=== PATIENT | male | born 1975 | race Caucasian/White ===

== ENCOUNTER 2019-12-11 17:28 | Emergency (ER) | payer OTHER, MEDICAID, SELFPAY ==
[2019-12-11 17:35] VITALS: BP 128/78; PULSE 87; RESP 14; TEMP 36.4; O2SAT 100
[2019-12-11 18:04] LABS: Add Manual Diff / Slide Review NO; Basophils Absolute Auto 100 /uL (0-100); Basophils Percent Auto 0.7 % (0-2); Eosinophils Absolute Auto 100 /uL (0-450); Eosinophils Percent Auto 1.1 % (2-4); Hematocrit 49.5 % (41-53); Hemoglobin 17.2 g/dL (13.5-17.5); Lymphocytes Absolute Auto 2000 /uL (1100-4500); Lymphocytes Percent Auto 19.2 % (25-40); Mean Corpuscular HGB Conc 34.7 % (30-36); Mean Corpuscular Hemoglobin 31.7 PG (26-34); Mean Corpuscular Volume 91.4 fL (80-100); Monocytes Absolute Auto 1000 /uL (0-900); Monocytes Percent Auto 9.8 % (3-14); Neutrophils Absolute Auto 7000 /uL (1500-7000); Neutrophils Percent Auto 69.2 % (50-75); Platelet Count 187 X10^3/uL (150-400); Red Blood Cell Count 5.42 X10^6/uL (4.5-5.9); Red Cell Distribution Width 13.1 % (11.6-14.8); White Blood Cell Count 10.1 X10^3/uL (4.5-11.0)
[2019-12-11] MEDS: SODIUM CHLORIDE 0.9% 1,000 ML 999 ML IV (18:04)
[2019-12-11 18:16] LABS: Alanine Aminotransferase 44 IU/L (<50); Albumin 4.5 g/dL (3.5-5.0); Albumin Globulin Ratio 1.3 (1.0-2.8); Alkaline Phosphatase 88 U/L (38-126); Amylase 72 U/L (30-110); Aspartate Aminotransferase 36 IU/L (17-59); BUN Creatinine Ratio 14.2 (6-22); Bilirubin Total 2.1 mg/dL (0.2-1.3); Blood Urea Nitrogen 15 mg/dL (9-20); Calcium 9.4 mg/dL (8.4-10.2); Carbon Dioxide 26 mmol/L (22-32); Chloride 103 mmol/L (98-107); Estimated Glomerular Filt Rate > 60.0 mL/min (>60); Globulin 3.4 g/dL (1.7-4.1); Glucose 85 mg/dL (70-100); HEMOLYSIS 25 (0-50); Lipase 57 U/L (23-300); Sodium 138 mmol/L (137-145); Total Protein 7.9 g/dL (6.3-8.2)
--- NOTE | 2019-12-11 18:49 | DI.CT.S_ITS ---
PROCEDURE: CT ABDOMEN PELVIS W CON INDICATIONS: llq pain TECHNIQUE: After the administration of intravenous contrast, 5 mm thick sections acquired from the diaphragm to the symphysis. 5 mm coronal and sagittal reformats were acquired. For radiation dose reduction, the following was used: automated exposure control, adjustment of mA and/or kV according to patient size. COMPARISON: None. FINDINGS: Image quality: Excellent. ABDOMEN: Lung bases: Lung bases are clear. Heart size is normal. Solid organs: Hepatic steatosis. Liver is normal in size and enhancement. Gallbladder is normal. Biliary system is non dilated. Pancreas enhances normally. Spleen is normal in size and enhancement. No adrenal nodules. Kidneys demonstrate normal size and enhancement, without hydronephrosis. Peritoneum and bowel: There are chronic diverticula. There is focal thickening and inflammatory stranding in the descending colon adjacent to a diverticulum, consistent with acute diverticulitis. There is a surgical anastomosis in the sigmoid colon. There is moderate amount of colonic stool. Bowel loops demonstrate normal caliber. No free fluid or air. Nodes and vessels: No retroperitoneal or mesenteric adenopathy by size criteria. Aorta and inferior vena cava are normal in size. Miscellaneous: No ventral hernias. PELVIS: Genitourinary: Bladder wall thickness is normal. Enlarged prostate. Miscellaneous: No inguinal hernias or adenopathy. Bones: No suspicious bony lesions. No vertebral body compression fractures. IMPRESSION: 1. Acute diverticulitis of the descending colon. 2. Hepatic steatosis. 3. Enlarged prostate. Dictated by: Roxane Michelle M.D. on 12/11/2019 at 19:27 Approved by: Roxane Michelle M.D. on 12/11/2019 at 19:32
--- NOTE | 2019-12-11 19:38 | ED_ITS ---
HPI - Abdominal Pain <SUZY Marcos- - Last Filed: 12/11/19 19:56> General Chief Complaint: Abdominal Pain Stated Complaint: thinks diverticulitis Time Seen by Provider: 12/11/19 17:38 Source: patient Mode of arrival: Ambulatory Limitations: no limitations History of Present Illness HPI narrative: The patient is a 44-year-old male nonsmoker with history of diverticulitis who presents with a chief complaint of left lower quadrant pain. He states he most recently had diverticulitis in 2016 and this feels similar. Denies any fevers nausea vomiting or diarrhea. He states he had a slight episode of nausea yesterday but it went away. He has not taken anything to feel better. He states that he had multiple episodes of diverticulitis someone year, so he a part of his colon removed. He states that when the pain gets really bad it radiates to his back. He denies any urinary symptoms. Denies any flank pain chest pain shortness of breath. Related Data Previous Rx's Medication Instructions Recorded ciprofloxacin HCl 500 mg PO BID 10 Days #20 tab 12/11/19 hydrocodone-acetaminophen 1 tab PO Q4-6H PRN #10 tab 12/11/19 metronidazole 500 mg PO Q8H 10 Days #30 tab 12/11/19 ondansetron 4 mg PO Q6H PRN #20 tab 12/11/19 Allergies Allergy/AdvReac Type Severity Reaction Status Date / Time No Known Drug Allergies Allergy Verified 12/11/19 17:36 Review of Systems <NAEL Marcos - Last Filed: 12/11/19 19:56> Review of Systems Narrative: GENERAL: Denies chills, fatigue, malaise, fever, sweats. HEENT: Denies sinus pain, ear pain, sore throat, difficulty swallowing, dizziness. RESPIRATORY: Denies dyspnea, cough, wheezing, hemoptysis, sputum. CARDIOVASCULAR: Denies chest pain, palpitations, orthopnea, edema, GASTROINTESTINAL: See HPI : Denies dysuria, frequency, incontinence, hematuria, urinary retention. MUSCULOSKELETAL: denies weakness, joint pain, or bony pain SKIN: Denies rash, skin lesions, or other NEUROLOGIC: Denies weakness, headache, numbness, change in speech, confusion, seizures, incoordination. PSYCHIATRIC: No concerning psychosocial issues. 12 point review of systems is negative except for those stated above Patient History <PUJA Marcos - Last Filed: 12/11/19 19:56> Surgical History (Updated 12/11/19 @ 19:39 by PUJA Marcos) History of abdominal surgery (Acute) Social History Smoking Status: Never smoker Smoking Status: Never smoker Exam <PUJA Marcos - Last Filed: 12/11/19 19:56> Narrative Exam Narrative: GENERAL: This is a well-nourished, well-developed patient, no acute distress HEAD: Atraumatic. Normocephalic. No temporal or scalp tenderness. EYES: Pupils equal round and reactive. Extraocular motions intact. No scleral icterus. No injection or drainage. ENT: Nose without bleeding, purulent drainage or septal hematoma. Throat without erythema, tonsillar hypertrophy or exudate. Uvula midline. Airway patent. NECK: Trachea midline. No JVD or lymphadenopathy. Supple, nontender, no meningeal signs. CARDIOVASCULAR: Regular rate and rhythm without murmurs, gallops, or rubs. RESPIRATORY: Clear to auscultation. Breath sounds equal bilaterally. No wheezes, rales, or rhonchi. GASTROINTESTINAL: Abdomen soft, nondistended. No hepato-splenomegaly, or palpable masses. No guarding. Diffuse tenderness to left lower quadrant palpation EXTREMITIES: No clubbing, cyanosis, or edema. No joint tenderness, effusion, or edema noted. BACK: Nontender without deformity or crepitance. No flank tenderness. NEURO: AOx3. SKIN: No rash or erythema. Initial Vital Signs Initial Vital Signs: Vital Signs Temperature 97.6 F 12/11/19 17:35 Pulse Rate 87 12/11/19 17:35 Respiratory Rate 14 12/11/19 17:35 Blood Pressure 128/78 12/11/19 17:35 Pulse Oximetry 100 12/11/19 17:35 <Leticia Broderick DO - Last Filed: 12/11/19 21:26> Initial Vital Signs Initial Vital Signs: Vital Signs Temperature 97.6 F 12/11/19 17:35 Pulse Rate 87 12/11/19 17:35 Respiratory Rate 14 12/11/19 17:35 Blood Pressure 128/78 12/11/19 17:35 Pulse Oximetry 100 12/11/19 17:35 Course <PUJA Marcos - Last Filed: 12/11/19 19:56> Orders Ordered: ED Orders 12/11/19 17:56 Amylase Stat Complete Blood Count AUTO DIFF Stat Comprehensive Metabolic Panel Stat Lipase Stat 12/11/19 18:49 CT abdomen pelvis w con Stat Discontinued Medications Sodium Chloride (Normal Saline 0.9%) 1,000 mls @ 150 mls/hr IV CONT MARISA Last Infusion: 12/11/19 19:05 Dose: 0 mls/hr Documented by: Admin: 12/11/19 18:04 Dose: 999 mls/hr Documented by: LIYAH Vital Signs Vital signs: Vital Signs - 8 hr 12/11/19 17:35 12/11/19 20:01 Temperature 97.6 F Pulse Rate 87 72 Respiratory Rate 14 18 Blood Pressure 128/78 Blood Pressure [Left Arm] 117/70 Pulse Oximetry 100 99 <Leticia Broderick DO - Last Filed: 12/11/19 21:26> Orders Ordered: ED Orders 12/11/19 17:56 Amylase Stat Complete Blood Count AUTO DIFF Stat Comprehensive Metabolic Panel Stat Lipase Stat 12/11/19 18:49 CT abdomen pelvis w con Stat Discontinued Medications Sodium Chloride (Normal Saline 0.9%) 1,000 mls @ 150 mls/hr IV CONT MARISA Last Infusion: 12/11/19 19:05 Dose: 0 mls/hr Documented by: Admin: 12/11/19 18:04 Dose: 999 mls/hr Documented by: LIYAH Vital Signs Vital signs: Vital Signs - 8 hr 12/11/19 17:35 12/11/19 20:01 Temperature 97.6 F Pulse Rate 87 72 Respiratory Rate 14 18 Blood Pressure 128/78 Blood Pressure [Left Arm] 117/70 Pulse Oximetry 100 99 MDM - Abdominal Pain <PUJA Marcos - Last Filed: 12/11/19 19:56> Differential Diagnosis Differential diagnosis: Likely abdominal pain, acute appendicitis, constipation and diverticulitis Lab Data Result diagrams: 12/11/19 17:56 12/11/19 17:56 Labs: Lab Results 12/11/19 12/11/19 Range/Units 17:56 17:56 WBC 10.1 (4.5-11.0) X10^3/uL RBC 5.42 (4.5-5.9) X10^6/uL Hgb 17.2 (13.5-17.5) g/dL Hct 49.5 (41-53) % MCV 91.4 (80-100) fL MCH 31.7 (26-34) PG MCHC 34.7 (30-36) % RDW 13.1 (11.6-14.8) % Plt Count 187 (150-400) X10^3/uL Neut % (Auto) 69.2 (50-75) % Lymph % (Auto) 19.2 L (25-40) % [place] % (Auto) 9.8 (3-14) % Eos % (Auto) 1.1 L (2-4) % Baso % (Auto) 0.7 (0-2) % Neut # (Auto) 7000 (2937-3924) /uL Lymph # (Auto) 2000 (5202-9202) /uL [place] # (Auto) 1000 H (0-900) /uL Eos # (Auto) 100 (0-450) /uL Baso # (Auto) 100 (0-100) /uL Sodium 138 (137-145) mmol/L Potassium 4.0 (3.4-5.1) mmol/L Chloride 103 (98-107) mmol/L Carbon Dioxide 26 (22-32) mmol/L BUN 15 (9-20) mg/dL Creatinine 1.06 (0.66-1.25) mg/dL Estimated GFR > 60.0 (>60) mL/min BUN/Creatinine Ratio 14.2 (6-22) Glucose 85 (70-100) mg/dL Calcium 9.4 (8.4-10.2) mg/dL Total Bilirubin 2.1 H (0.2-1.3) mg/dL AST 36 (17-59) IU/L ALT 44 (<50) IU/L Alkaline Phosphatase 88 (38-126) U/L Total Protein 7.9 (6.3-8.2) g/dL Albumin 4.5 (3.5-5.0) g/dL Globulin 3.4 (1.7-4.1) g/dL Albumin/Globulin Ratio 1.3 (1.0-2.8) Amylase 72 (30-110) U/L Lipase 57 (23-300) U/L Imaging Data CT scan - abdomen/pelvis: Radiologist's Impression: [address] [place] [id number] Scan Report Signed Patient: Eleazar Maria PMR#: [id number] : 1975Acct:[id number] Age/Sex: 44 / MDate of Service: 12/11/19 Loc: ED Accession Number: [id number] Procedure: CT abdomen pelvis w con Ordering Provider: Leticia Montero- PROCEDURE: CT ABDOMEN PELVIS W CON INDICATIONS: llq pain TECHNIQUE: After the administration of intravenous contrast, 5 mm thick sections acquired from the diaphragm to the symphysis. 5 mm coronal and sagittal reformats were acquired. For radiation dose reduction, the following was used: automated exposure control, adjustment of mA and/or kV according to patient size. COMPARISON: None. FINDINGS: Image quality: Excellent. ABDOMEN: Lung bases: Lung bases are clear. Heart size is normal. Solid organs: Hepatic steatosis. Liver is normal in size and enhancement. Gallbladder is normal. Biliary system is non dilated. Pancreas enhances normally. Spleen is normal in size and enhancement. No adrenal nodules. Kidneys demonstrate normal size and enhancement, without hydronephrosis. Peritoneum and bowel: There are chronic diverticula. There is focal thickening and inflammatory stranding in the descending colon adjacent to a diverticulum, consistent with acute diverticulitis. There is a surgical anastomosis in the sigmoid colon. There is moderate amount of colonic stool. Bowel loops demonstrate normal caliber. No free fluid or air. Nodes and vessels: No retroperitoneal or mesenteric adenopathy by size criteria. Aorta and inferior vena cava are normal in size. Miscellaneous: No ventral hernias. PELVIS: Genitourinary: Bladder wall thickness is normal. Enlarged prostate. Miscellaneous: No inguinal hernias or adenopathy. Bones: No suspicious bony lesions. No vertebral body compression fractures. IMPRESSION: 1. Acute diverticulitis of the descending colon. 2. Hepatic steatosis. 3. Enlarged prostate. Dictated by: Roxane Michelle M.D. on 12/11/2019 at 19:27 Approved by: Roxane Michelle M.D. on 12/11/2019 at 19:32 MDM Narrative Medical decision making narrative: The patient is a 44-year-old male who presents with a chief complaint of left lower quadrant pain consistent with previous episodes of diverticulitis. He is nontoxic and well appearing, afebrile, in no acute distress. Labs reveal no leukocytosis, good renal function. CT shows diverticulitis, discussed incidental findings of hepatic steatosis and slight prostate enlargement. Patient elected to use Cipro and Flagyl for treatment. Did give prescriptions of [place] and Zofran as well. Discussed at length the importance of following up with primary care provider coming back to the emergency department for any acute concerns such as inability keep down fluids, abdominal pain high fever etcetera. Patient has no questions or concerns upon discharge and states understanding of return precautions as well as follow-up care. <Leticia Broderick, DO - Last Filed: 12/11/19 21:26> Lab Data Labs: Lab Results 12/11/19 12/11/19 Range/Units 17:56 17:56 WBC 10.1 (4.5-11.0) X10^3/uL RBC 5.42 (4.5-5.9) X10^6/uL Hgb 17.2 (13.5-17.5) g/dL Hct 49.5 (41-53) % MCV 91.4 (80-100) fL MCH 31.7 (26-34) PG MCHC 34.7 (30-36) % RDW 13.1 (11.6-14.8) % Plt Count 187 (150-400) X10^3/uL Neut % (Auto) 69.2 (50-75) % Lymph % (Auto) 19.2 L (25-40) % [place] % (Auto) 9.8 (3-14) % Eos % (Auto) 1.1 L (2-4) % Baso % (Auto) 0.7 (0-2) % Neut # (Auto) 7000 (6199-7729) /uL Lymph # (Auto) 2000 (5931-1539) /uL [place] # (Auto) 1000 H (0-900) /uL Eos # (Auto) 100 (0-450) /uL Baso # (Auto) 100 (0-100) /uL Sodium 138 (137-145) mmol/L Potassium 4.0 (3.4-5.1) mmol/L Chloride 103 (98-107) mmol/L Carbon Dioxide 26 (22-32) mmol/L BUN 15 (9-20) mg/dL Creatinine 1.06 (0.66-1.25) mg/dL Estimated GFR > 60.0 (>60) mL/min BUN/Creatinine Ratio 14.2 (6-22) Glucose 85 (70-100) mg/dL Calcium 9.4 (8.4-10.2) mg/dL Total Bilirubin 2.1 H (0.2-1.3) mg/dL AST 36 (17-59) IU/L ALT 44 (<50) IU/L Alkaline Phosphatase 88 (38-126) U/L Total Protein 7.9 (6.3-8.2) g/dL Albumin 4.5 (3.5-5.0) g/dL Globulin 3.4 (1.7-4.1) g/dL Albumin/Globulin Ratio 1.3 (1.0-2.8) Amylase 72 (30-110) U/L Lipase 57 (23-300) U/L Discharge Plan Departure Patient Disposition: Home Clinical Impression: Diverticulitis Discharge Date/Time: 12/11/19 20:02 Instructions: DI for Diverticulitis, DI for Abdominal Pain-Adult Activity Restrictions/Additional Instructions: Thank you for trusting us with your care today. Your CT scan showed acute diverticulitis. I have sent for prescriptions to [facility] in [place], 1 for pain, 1 for daniele sea and two antibiotics Please take the whole course of antibiotics Please follow-up with primary care provider next few days Please come back to the emergency department for any acute concerns such as inability keep down fluids, high fevers, etcetera Prescriptions: New hydrocodone-acetaminophen 5-325 mg tablet 1 tab PO Q4-6H PRN (Reason: pain) Qty: 10 RF: 0 ondansetron 4 mg tablet,disintegrating 4 mg PO Q6H PRN (Reason: nausea and vomiting) Qty: 20 RF: 0 ciprofloxacin HCl 500 mg tablet 500 mg PO BID 10 Days Qty: 20 RF: 0 metronidazole 500 mg tablet 500 mg PO Q8H 10 Days Qty: 30 RF: 0 Referrals: Saige Celeste MD [Primary Care Provider] -
[2019-12-11 20:01] VITALS: BP 117/70; PULSE 72; RESP 18; O2SAT 99
== END 2019-12-11 20:02 | disposition home or self-care (01) ==
PROVIDERS: Emergency Provider Nurse Practitioner Family; PCP Student in an Organized Health Care Education/Training Program
DX: K57.92 Diverticulitis of intestine, part unspecified, without perforation or abscess without bleeding (principal); R10.32 Left lower quadrant pain
CPT/HCPCS: 36415; 74177; 80053; 82150; 83690; 85025; 96360; 99284; Q9967

== ENCOUNTER 2022-05-28 09:37 | Emergency (ER) | payer OTHER, MEDICAID, SELFPAY ==
[2022-05-28 09:50] VITALS: BP 151/93; PULSE 81; RESP 18; TEMP 36.8; O2SAT 99; BMI 27.1
[2022-05-28 09:54] VITALS: PULSE 81; O2SAT 98
[2022-05-28 09:55] VITALS: BP 151/93; PULSE 80; O2SAT 99
[2022-05-28 10:00] VITALS: PULSE 84; O2SAT 98
--- NOTE | 2022-05-28 10:18 | DI.CT.S_ITS ---
PROCEDURE: CT ABDOMEN PELVIS W CON INDICATIONS: Left-sided abdominal pain, hx of diverticulitis w/resection TECHNIQUE: After the administration of oral and IV contrast, axial sections were acquired from the lung bases to the pubic symphysis. Coronal and sagittal reformats were performed. For radiation dose reduction, the following was used: automated exposure control, adjustment of mA and/or kV according to patient size. COMPARISON: [facility], CT, CT ABDOMEN PELVIS W CON, 12/11/2019, 18:53. FINDINGS: Image quality: Excellent. Lung bases: No pleural effusion. Calcification adjacent to the left 11th rib is unchanged. It is indeterminate if this represents bone or pleural calcification. Heart: No significant findings. ABDOMEN: Liver: No focal lesion. Hepatic steatosis. Gallbladder: Unremarkable. Biliary ducts: Unremarkable. Pancreas: No peripancreatic fluid collection. Spleen: Unremarkable. Adrenal Glands: No nodule. Kidneys and Ureters: No hydronephrosis. Stomach and Bowel: Moderate inflammatory change about the proximal aspect of the descending colon near the splenic flexure, (2/32). There is colonic diverticulosis. Rectosigmoid anastomosis is unchanged. No small bowel obstruction. The stomach is not distended. The appendix is normal. Peritoneum: No abnormal intraperitoneal fluid. No free air. Ventral Wall: No hernia. Abdominal Nodes: No retroperitoneal or mesenteric adenopathy by size criteria. Vessels: Aorta and inferior vena cava are normal in size. PELVIS: Pelvic Organs: Unremarkable. Bladder: Unremarkable. Pelvic Nodes: No enlarged lymph nodes. Miscellaneous: No inguinal hernias are seen. Bones: No suspicious lesion. IMPRESSION: 1. Descending colon diverticulitis near the splenic flexure. No abscess. 2. Hepatic steatosis. Comment: Findings were discussed with Wilder Alexander at time of dictation. Dictated by: Rajesh Collier M.D. on 05/28/2022 at 10:45 Approved by: Rajesh Collier M.D. on 05/28/2022 at 10:58
--- NOTE | 2022-05-28 10:22 | ED_ITS ---
HPI - General Adult General Chief complaint: Abdominal Pain Stated complaint: abd pain left side, hx of diverticulitis Time Seen by Provider: 05/28/22 10:17 Source: patient Mode of arrival: Ambulatory History of Present Illness HPI narrative: Patient is a 47-year-old male. Has had kidney stones and also diverticulitis in the past. His last bout of diverticulitis is many years ago. He had 3 episodes within 12 months and so stated that he had a 6 in piece of colon removed. Last evening started to have some discomfort in the left side of his abdomen. It was starting in his back radiating to the front. It felt more like diverticulitis then kidney stone. He states it is not worse to touch. Is not 100% like prior episodes of stones. No diarrhea but is having nausea and vomiting. No fevers. No recent antibiotics. Related Data Previous Rx's Medication Instructions Recorded hydrocodone 5 mg-acetaminophen 325 1 tab PO Q4-6H PRN pain #10 tabs 12/11/19 mg tablet ondansetron 4 mg disintegrating 4 mg PO Q6H PRN nausea and 12/11/19 tablet vomiting #20 tabs ciprofloxacin HCl 500 mg tablet 500 mg PO BID 10 days #20 tabs 05/28/22 (Cipro) metronidazole 500 mg tablet 500 mg PO TID 10 days #30 tabs 05/28/22 Allergies Allergy/AdvReac Type Severity Reaction Status Date / Time No Known Drug Allergies Allergy Verified 12/11/19 17:36 Review of Systems Review of Systems ROS Unobtainable: All systems reviewed & are unremarkable except as noted in HPI and below Patient History Medical History Diverticulitis Surgical History (Updated 05/28/22 @ 10:23 by Wilder Alexander DO) History of abdominal surgery History of colon resection Social History Smoking Status: Never smoker Smoking Status: Never smoker Substance Use Type: does not use Exam Initial Vital Signs Initial Vital Signs: Vital Signs Temperature 98.2 F 05/28/22 09:50 Pulse Rate 81 05/28/22 09:50 Respiratory Rate 18 05/28/22 09:50 Blood Pressure 151/93 H 05/28/22 09:50 Pulse Oximetry 99 09/16/22 09:50 Oxygen Delivery Method 05/28/22 09:50 Const General: cooperative and comfortable HENMT Head: normal to inspection and normocephalic Resp Effort & Inspection: normal respiratory effort Auscultation: clear to auscultation bilaterally Cardio Rate: regular rate Rhythm: regular rhythm GI Inspection: normal to inspection Palpation: soft and No tender Skin General: no rashes or lesions noted Neuro General: patient alert, patient awake and moves all extremities Extrem General: normal to inspection and capillary refill normal Psych Appearance: grossly normal and well kempt Course Orders Ordered: ED Orders 05/28/22 09:57 Complete Blood Count AUTO DIFF Stat Comprehensive Metabolic Panel Stat Lipase Stat 05/28/22 10:18 CT abdomen pelvis w con Stat Sodium Chloride (Normal Saline 0.9%) 1,000 mls @ 1,000 mls/hr IV BOLUS ONE Stop: 05/28/22 11:17 Last Admin: 05/28/22 10:37 Dose: 1,000 mls/hr Documented By: ALEXANDRE Vital Signs Vital signs: Vital Signs - 8 hr 05/28/22 09:50 05/28/22 09:54 05/28/22 09:55 Temperature 98.2 F Pulse Rate 81 81 80 Respiratory Rate 18 Blood Pressure 151/93 H Pulse Oximetry 99 98 99 Oxygen Delivery Method Room Air 05/28/22 09:55 05/28/22 10:00 Temperature Pulse Rate 84 Respiratory Rate Blood Pressure 151/93 H Pulse Oximetry 98 Oxygen Delivery Method Medical Decision Making Lab Data Lab results reviewed: Yes I reviewed the patient's lab results. Result diagrams: 05/28/22 09:57 05/28/22 09:57 Labs: Lab Results 05/28/22 05/28/22 Range/Units 09:57 09:57 WBC 10.9 (4.5-11.0) X10^3/uL RBC 5.37 (4.5-5.9) X10^6/uL Hgb 17.1 (13.5-17.5) g/dL Hct 49.1 (41-53) % MCV 91.4 (80-100) fL MCH 31.8 (26-34) PG MCHC 34.8 (30-36) % RDW 13.7 (11.6-14.8) % Plt Count 159 (150-400) X10^3/uL Neut % (Auto) 81.2 H (50-75) % Lymph % (Auto) 11.2 L (25-40) % [place] % (Auto) 6.8 (3-14) % Eos % (Auto) 0.5 L (2-4) % Baso % (Auto) 0.3 (0-2) % Neut # (Auto) 8900 H (6431-0289) /uL Lymph # (Auto) 1200 (9730-4267) /uL [place] # (Auto) 700 (0-900) /uL Eos # (Auto) 100 (0-450) /uL Baso # (Auto) 0 (0-100) /uL Sodium 138 (137-145) mmol/L Potassium 4.0 (3.4-5.1) mmol/L Chloride 100 (98-107) mmol/L Carbon Dioxide 27 (22-32) mmol/L BUN 13 (9-20) mg/dL Creatinine 1.01 (0.66-1.25) mg/dL Estimated GFR > 60 (>60) mL/min BUN/Creatinine Ratio 12.9 (6-22) Glucose 154 H (70-100) mg/dL Calcium 9.1 (8.4-10.2) mg/dL Total Bilirubin 2.2 H (0.2-1.3) mg/dL AST 42 (17-59) IU/L ALT 53 H (<50) IU/L Alkaline Phosphatase 97 (38-126) U/L Total Protein 7.6 (6.3-8.2) g/dL Albumin 4.4 (3.5-5.0) g/dL Globulin 3.2 (1.7-4.1) g/dL Albumin/Globulin Ratio 1.4 (1.0-2.8) Lipase 48 (23-300) U/L Imaging Data CT scan - abdomen/pelvis: Radiologist's Impression: [address] [address] [address] Scan Report Signed Patient: Eleazar Maria MR#: [id number] : 1975 Acct:[id number] Age/Sex: 47 / M Date of Service: 05/28/22 Loc: ED Accession Number: [id number] ?? Procedure: CT abdomen pelvis w con Ordering Provider: Lanker,Wilder D.O. PROCEDURE:? CT ABDOMEN PELVIS W CON ? INDICATIONS:? Left-sided abdominal pain, hx of diverticulitis w/resection ? TECHNIQUE:? After the administration of oral and IV contrast, axial sections were acquired from the lung bases to the pubic symphysis.? Coronal and sagittal reformats were performed.? For radiation dose reduction, the following was used:? automated exposure control, adjustment of mA and/or kV according to patient size. ? COMPARISON:? [facility], CT, CT ABDOMEN PELVIS W CON, 12/11/2019, 18:53. ? FINDINGS:? Image quality:? Excellent.? ? Lung bases:? No pleural effusion.? Calcification adjacent to the left 11th rib is unchanged.? It is indeterminate if this represents bone or pleural calcification.? ? Heart:? No significant findings. ? ? ABDOMEN: Liver:? No focal lesion.? Hepatic steatosis. Gallbladder:? Unremarkable.? ? Biliary ducts:? Unremarkable.? ? Pancreas:? No peripancreatic fluid collection.? ? Spleen:? Unremarkable.? ? Adrenal Glands:? No nodule. Kidneys and Ureters:? No hydronephrosis. ? Stomach and Bowel:? Moderate inflammatory change about the proximal aspect of the descending colon near the splenic flexure, ().? There is colonic diverticulosis.? Rectosigmoid anastomosis is unchanged.? No small bowel obstruction.? The stomach is not distended.? The appendix is normal. Peritoneum:? No abnormal intraperitoneal fluid.? No free air.? ? Ventral Wall: ? No hernia.? Abdominal Nodes:? No retroperitoneal or mesenteric adenopathy by size criteria.? Vessels:? Aorta and inferior vena cava are normal in size.? ? PELVIS: Pelvic Organs:? Unremarkable.? ? Bladder:? Unremarkable.? ? Pelvic Nodes: No enlarged lymph nodes.? Miscellaneous: No inguinal hernias are seen. ? ? ? Bones:? No suspicious lesion. ? ? IMPRESSION:? 1. Descending colon diverticulitis near the splenic flexure.? No abscess. ? 2. Hepatic steatosis. ? Comment: Findings were discussed with Wilder Alexander at time of dictation. ? Dictated by: Rajesh Collier M.D. on 05/28/2022 at 10:45 ? ? Approved by: Rajesh Collier M.D. on 05/28/2022 at 10:58? MDM Narrative Medical decision making narrative: Benign exam. Unremarkable labs. CT scan shows diverticulitis. Will discharge home with antibiotics. He was given return precautions. He expressed understanding and agreement. Discharge Plan Departure Patient Disposition: Home Clinical Impression: Diverticulitis Instructions: DI for Diverticulitis Activity Restrictions/Additional Instructions: A prescription for antibiotics was sent to [facility] in [place]. Take them as directed. Contact your primary doctor for follow-up. Return to the emergency department for any new or worsening symptoms. Prescriptions: New ciprofloxacin HCl [Cipro] 500 mg tablet 500 mg PO BID 10 Days Qty: 20 0RF metronidazole 500 mg tablet 500 mg PO TID 10 Days Qty: 30 0RF No Action hydrocodone-acetaminophen 5-325 mg tablet 1 tab PO Q4-6H PRN (Reason: pain) Qty: 10 0RF ondansetron 4 mg tablet,disintegrating 4 mg PO Q6H PRN (Reason: nausea and vomiting) Qty: 20 0RF Referrals: Saige Celeste MD [Primary Care Provider] -
[2022-05-28 10:36] LABS: Add Manual Diff / Slide Review NO; Basophils Absolute Auto 0 /uL (0-100); Basophils Percent Auto 0.3 % (0-2); Eosinophils Absolute Auto 100 /uL (0-450); Eosinophils Percent Auto 0.5 % (2-4); Hematocrit 49.1 % (41-53); Hemoglobin 17.1 g/dL (13.5-17.5); Lymphocytes Absolute Auto 1200 /uL (1100-4500); Lymphocytes Percent Auto 11.2 % (25-40); Mean Corpuscular HGB Conc 34.8 % (30-36); Mean Corpuscular Hemoglobin 31.8 PG (26-34); Mean Corpuscular Volume 91.4 fL (80-100); Monocytes Absolute Auto 700 /uL (0-900); Monocytes Percent Auto 6.8 % (3-14); Neutrophils Absolute Auto 8900 /uL (1500-7000); Neutrophils Percent Auto 81.2 % (50-75); Platelet Count 159 X10^3/uL (150-400); Red Blood Cell Count 5.37 X10^6/uL (4.5-5.9); Red Cell Distribution Width 13.7 % (11.6-14.8); White Blood Cell Count 10.9 X10^3/uL (4.5-11.0)
[2022-05-28] MEDS: SODIUM CHLORIDE 0.9% 1,000 ML 1000 ML IV (10:37)
[2022-05-28 10:39] VITALS: PULSE 87; O2SAT 97
[2022-05-28 10:45] LABS: Alanine Aminotransferase 53 IU/L (<50); Albumin 4.4 g/dL (3.5-5.0); Albumin Globulin Ratio 1.4 (1.0-2.8); Alkaline Phosphatase 97 U/L (38-126); Aspartate Aminotransferase 42 IU/L (17-59); BUN Creatinine Ratio 12.9 (6-22); Bilirubin Total 2.2 mg/dL (0.2-1.3); Blood Urea Nitrogen 13 mg/dL (9-20); Calcium 9.1 mg/dL (8.4-10.2); Carbon Dioxide 27 mmol/L (22-32); Chloride 100 mmol/L (98-107); Estimated Glomerular Filt Rate > 60 mL/min (>60); Globulin 3.2 g/dL (1.7-4.1); Glucose 154 mg/dL (70-100); HEMOLYSIS 17 (0-50); Lipase 48 U/L (23-300); Sodium 138 mmol/L (137-145); Total Protein 7.6 g/dL (6.3-8.2)
[2022-05-28 11:00] VITALS: BP 150/60; PULSE 84; O2SAT 97
== END 2022-05-28 11:22 | disposition home or self-care (01) ==
PROVIDERS: Emergency Provider Emergency Medicine; PCP Student in an Organized Health Care Education/Training Program
DX: K57.92 Diverticulitis of intestine, part unspecified, without perforation or abscess without bleeding (principal)
CPT/HCPCS: 36415; 74177; 80053; 83690; 85025; 96360; 99284; Q9967

== ENCOUNTER 2022-09-14 08:35 | Emergency (ER) | payer OTHER, MEDICAID, SELFPAY ==
[2022-09-14 09:22] VITALS: BP 137/83; PULSE 95; RESP 20; TEMP 37.1; O2SAT 100; BMI 27.1
[2022-09-14 10:10] LABS: Add Manual Diff / Slide Review NO; Basophils Absolute Auto 0 /uL (0-100); Basophils Percent Auto 0.3 % (0-2); Eosinophils Absolute Auto 0 /uL (0-450); Eosinophils Percent Auto 0.3 % (2-4); Hematocrit 49.5 % (41-53); Hemoglobin 17.1 g/dL (13.5-17.5); Lymphocytes Absolute Auto 500 /uL (1100-4500); Lymphocytes Percent Auto 4.5 % (25-40); Mean Corpuscular HGB Conc 34.6 % (30-36); Mean Corpuscular Hemoglobin 31.5 PG (26-34); Mean Corpuscular Volume 91.2 fL (80-100); Monocytes Absolute Auto 700 /uL (0-900); Monocytes Percent Auto 6.3 % (3-14); Neutrophils Absolute Auto 9400 /uL (1500-7000); Neutrophils Percent Auto 88.6 % (50-75); Platelet Count 145 X10^3/uL (150-400); Red Blood Cell Count 5.43 X10^6/uL (4.5-5.9); Red Cell Distribution Width 13.5 % (11.6-14.8); White Blood Cell Count 10.6 X10^3/uL (4.5-11.0)
[2022-09-14 10:21] LABS: Alanine Aminotransferase 44 IU/L (<50); Albumin 4.3 g/dL (3.5-5.0); Albumin Globulin Ratio 1.3 (1.0-2.8); Alkaline Phosphatase 101 U/L (38-126); Aspartate Aminotransferase 42 IU/L (17-59); BUN Creatinine Ratio 13.8 (6-22); Bilirubin Total 2.5 mg/dL (0.2-1.3); Blood Urea Nitrogen 13 mg/dL (9-20); Calcium 8.7 mg/dL (8.4-10.2); Carbon Dioxide 27 mmol/L (22-32); Chloride 102 mmol/L (98-107); Estimated Glomerular Filt Rate > 60 mL/min (>60); Globulin 3.2 g/dL (1.7-4.1); Glucose 95 mg/dL (70-100); HEMOLYSIS < 15 (0-50); Lipase 35 U/L (23-300); Potassium 4.1 mmol/L (3.4-5.1); Sodium 137 mmol/L (137-145); Total Protein 7.5 g/dL (6.3-8.2)
--- NOTE | 2022-09-14 11:40 | ED.GENADULT ---
HPI - General Adult General Chief complaint: Abdominal Pain Stated complaint: abd pain t-1 LT side Time Seen by Provider: 09/14/22 11:11 Source: patient Mode of arrival: Family Vehicle Related Data Previous Rx's Medication Instructions Recorded hydrocodone 5 mg-acetaminophen 325 1 tab PO Q4-6H PRN pain #10 tabs 12/10/ mg tablet ondansetron 4 mg disintegrating 4 mg PO Q6H PRN nausea and 12/11/19 tablet vomiting #20 tabs Allergies Allergy/AdvReac Type Severity Reaction Status Date / Time No Known Drug Allergies Allergy Verified 09/14/22 09:22 Patient History Medical History Diverticulitis Surgical History History of abdominal surgery History of colon resection Social History Smoking Status: Current every day smoker Smoking Status: Current every day smoker tobacco type: smokeless tobacco alcohol intake frequency: a few times a month Substance Use Type: marijuana Exam Initial Vital Signs Initial Vital Signs: Vital Signs Temperature 98.7 F 09/14/22 09:22 Pulse Rate 95 H 09/14/22 09:22 Respiratory Rate 20 09/14/22 09:22 Blood Pressure 137/83 09/14/22 09:22 Pulse Oximetry 100 09/14/22 09:22 Oxygen Delivery Method 09/14/22 09:22 Course Orders Ordered: Discontinued Medications Ondansetron HCl (Ondansetron 4 Mg Odt) 4 mg PO NOW PRN PRN Reason: Nausea And Vomiting Ondansetron HCl (Ondansetron 4 Mg/2 Ml Inj) 4 mg IV NOW PRN PRN Reason: Nausea And Vomiting Vital Signs Vital signs: Vital Signs - 8 hr 09/14/22 09:22 09/14/22 13:09 Temperature 98.7 F Pulse Rate 95 H 97 H Respiratory Rate 20 Blood Pressure 137/83 128/78 Pulse Oximetry 100 97 Oxygen Delivery Method Room Air Room Air Medical Decision Making Lab Data Result diagrams: 09/14/22 10:00 09/14/22 10:00 Labs: Lab Results 09/14/22 09/14/22 09/14/22 Range/Units 10:00 10:00 13:00 WBC 10.6 (4.5-11.0) X10^3/uL RBC 5.43 (4.5-5.9) X10^6/uL Hgb 17.1 (13.5-17.5) g/dL Hct 49.5 (41-53) % MCV 91.2 (80-100) fL MCH 31.5 (26-34) PG MCHC 34.6 (30-36) % RDW 13.5 (11.6-14.8) % Plt Count 145 L (150-400) X10^3/uL Neut % (Auto) 88.6 H (50-75) % Lymph % (Auto) 4.5 L (25-40) % [place] % (Auto) 6.3 (3-14) % Eos % (Auto) 0.3 L (2-4) % Baso % (Auto) 0.3 (0-2) % Neut # (Auto) 9400 H (2264-2110) /uL Lymph # (Auto) 500 L (6489-3823) /uL [place] # (Auto) 700 (0-900) /uL Eos # (Auto) 0 (0-450) /uL Baso # (Auto) 0 (0-100) /uL Sodium 137 (137-145) mmol/L Potassium 4.1 (3.4-5.1) mmol/L Chloride 102 (98-107) mmol/L Carbon Dioxide 27 (22-32) mmol/L BUN 13 (9-20) mg/dL Creatinine 0.94 (0.66-1.25) mg/dL Estimated GFR > 60 (>60) mL/min BUN/Creatinine Ratio 13.8 (6-22) Glucose 95 (70-100) mg/dL Calcium 8.7 (8.4-10.2) mg/dL Total Bilirubin 2.5 H (0.2-1.3) mg/dL AST 42 (17-59) IU/L ALT 44 (<50) IU/L Alkaline Phosphatase 101 (38-126) U/L Total Protein 7.5 (6.3-8.2) g/dL Albumin 4.3 (3.5-5.0) g/dL Globulin 3.2 (1.7-4.1) g/dL Albumin/Globulin Ratio 1.3 (1.0-2.8) Lipase 35 (23-300) U/L SARS-CoV-2 (PCR) Negative (Negative) Influenza A (RT-PCR) Flu a negative (NEGATIVE) Influenza B (RT-PCR) Flu b negative (NEGATIVE) RSV (PCR) Negative (Negative) Discharge Plan Departure Patient Disposition: Home Clinical Impression: Body aches Instructions: DI for Viral Syndrome Activity Restrictions/Additional Instructions: *You have been diagnosed with likely viral syndrome *What to do: *Please continue to take your regular medications as directed. *Please follow up with your primary care provider in 2-3 days, call for an appointment. Let them know you were seen in the Emergency Department and that we ask that you be seen in follow up. We will electronically transmit a record of today's note if your PCP is in our system *Return to Emergency Department if you should have any new, worsening or concerning symptoms, such as [fever greater than 101 F, shaking chills, worsening pain, persistent vomiting or other bothersome symptoms] Prescriptions: No Action hydrocodone-acetaminophen 5-325 mg tablet 1 tab PO Q4-6H PRN (Reason: pain) Qty: 10 0RF ondansetron 4 mg tablet,disintegrating 4 mg PO Q6H PRN (Reason: nausea and vomiting) Qty: 20 0RF Referrals: Saige Celeste MD [Primary Care Provider] - Stand Alone Forms: Patient Portal/API
--- NOTE | 2022-09-14 12:42 | ED.ABDPAIN ---
HPI - Abdominal Pain General Chief Complaint: Abdominal Pain Stated Complaint: abd pain t-1 LT side Time Seen by Provider: 09/14/22 11:11 Source: patient Mode of arrival: Family Vehicle History of Present Illness HPI narrative: 47-year-old male presenting with abdominal pain, chills, body aches, headache. Patient reports onset of symptoms yesterday evening when he developed shaking chills, patient did not have a measured temperature taken at that time. Chills resolved, patient developed diffuse right-sided abdominal pain and left low back pain, abdominal pain has resolved, patient has developed diffuse body aches and headache. Patient does have history of prior diverticulitis, patient reports that his symptoms feel distinct from that. No active abdominal pain in the emergency department. Patient reports mild nonproductive cough. Related Data Previous Rx's Medication Instructions Recorded hydrocodone 5 mg-acetaminophen 325 1 tab PO Q4-6H PRN pain #10 tabs 12/11/19 mg tablet ondansetron 4 mg disintegrating 4 mg PO Q6H PRN nausea and 12/11/19 tablet vomiting #20 tabs Allergies Allergy/AdvReac Type Severity Reaction Status Date / Time No Known Drug Allergies Allergy Verified 09/14/22 09:22 Review of Systems Review of Systems Narrative: Constitutional, Eyes, ENT, Pulmonary, Cardiovascular, Gastrointestinal, Renal, Endocrine, Genitourinary, Musculoskeletal, Neurologic, Skin, and Psychiatric systems were reviewed and negative unless indicated in the HPI above. Patient History Medical History Diverticulitis Surgical History History of abdominal surgery History of colon resection Social History Smoking Status: Current every day smoker Smoking Status: Current every day smoker tobacco type: smokeless tobacco alcohol intake frequency: a few times a month Substance Use Type: marijuana Exam Narrative Exam Narrative: Vitals reviewed. Nursing note reviewed Constitutional: interactive HENT: Moist mucous membranes EYES: No scleral icterus NECK: no masses CV: Well perfused peripherally, no cyanosis present PULM: Unlabored respirations, symmetric chest rise ABD: Non-distended, nontender with palpation MS: No gross deformities, no asymmetric edema noted SKIN: Warm and dry. PSYCH: Appropriate affect NEURO: Follows simple commands, moves extremities, interactive with exam Initial Vital Signs Initial Vital Signs: Vital Signs Temperature 98.7 F 09/14/22 09:22 Pulse Rate 95 H 09/14/22 09:22 Respiratory Rate 20 09/14/22 09:22 Blood Pressure 137/83 09/14/22 09:22 Pulse Oximetry 100 09/14/22 09:22 Oxygen Delivery Method 09/14/22 09:22 Course Orders Ordered: ED Orders 09/14/22 09:29 EKG-12 Lead Stat 09/14/22 10:00 Complete Blood Count AUTO DIFF Stat Comprehensive Metabolic Panel Stat Lipase Stat 09/14/22 12:47 Covid-19 + FLU A/B + RSV - PCR Stat Ondansetron HCl (Ondansetron 4 Mg Odt) 4 mg PO NOW PRN PRN Reason: Nausea And Vomiting Ondansetron HCl (Ondansetron 4 Mg/2 Ml Inj) 4 mg IV NOW PRN PRN Reason: Nausea And Vomiting Vital Signs Vital signs: Vital Signs - 8 hr 09/14/22 09:22 09/14/22 13:09 Temperature 98.7 F Pulse Rate 95 H 97 H Respiratory Rate 20 Blood Pressure 137/83 128/78 Pulse Oximetry 100 97 Oxygen Delivery Method Room Air Room Air MDM - Abdominal Pain Lab Data Result diagrams: 09/14/22 10:00 09/14/22 10:00 Labs: Lab Results 09/14/22 09/14/22 Range/Units 10:00 10:00 WBC 10.6 (4.5-11.0) X10^3/uL RBC 5.43 (4.5-5.9) X10^6/uL Hgb 17.1 (13.5-17.5) g/dL Hct 49.5 (41-53) % MCV 91.2 (80-100) fL MCH 31.5 (26-34) PG MCHC 34.6 (30-36) % RDW 13.5 (11.6-14.8) % Plt Count 145 L (150-400) X10^3/uL Neut % (Auto) 88.6 H (50-75) % Lymph % (Auto) 4.5 L (25-40) % [place] % (Auto) 6.3 (3-14) % Eos % (Auto) 0.3 L (2-4) % Baso % (Auto) 0.3 (0-2) % Neut # (Auto) 9400 H (8340-5076) /uL Lymph # (Auto) 500 L (0925-5710) /uL [place] # (Auto) 700 (0-900) /uL Eos # (Auto) 0 (0-450) /uL Baso # (Auto) 0 (0-100) /uL Sodium 137 (137-145) mmol/L Potassium 4.1 (3.4-5.1) mmol/L Chloride 102 (98-107) mmol/L Carbon Dioxide 27 (22-32) mmol/L BUN 13 (9-20) mg/dL Creatinine 0.94 (0.66-1.25) mg/dL Estimated GFR > 60 (>60) mL/min BUN/Creatinine Ratio 13.8 (6-22) Glucose 95 (70-100) mg/dL Calcium 8.7 (8.4-10.2) mg/dL Total Bilirubin 2.5 H (0.2-1.3) mg/dL AST 42 (17-59) IU/L ALT 44 (<50) IU/L Alkaline Phosphatase 101 (38-126) U/L Total Protein 7.5 (6.3-8.2) g/dL Albumin 4.3 (3.5-5.0) g/dL Globulin 3.2 (1.7-4.1) g/dL Albumin/Globulin Ratio 1.3 (1.0-2.8) Lipase 35 (23-300) U/L [facility] Narrative Medical decision making narrative: 47-year-old male presenting with abdominal pain, body aches, headache, cough, chills. Vital signs on presentation notable for no significant abnormalities. Physical exam notable for a well-appearing 47-year-old male who is in no acute distress, reassuring cardiopulmonary exam, benign abdomen. Initial concern for viral syndrome including COVID infection, influenza, focal bacterial infection including occult sepsis, recurrent diverticulitis, acute intra-abdominal pathology, medication effect, electrolyte derangement. Screening labs obtained and notable for reassuring CBC without leukocytosis or left shift, no significant anemia noted, CMP notable for minimally elevated T bili at 2.5, this is mildly up trending the patient's prior. Low suspicion for acute intra-abdominal pathology the patient's benign exam, no leukocytosis, and constellation of symptoms seem more consistent with viral syndrome. Patient has no clear evidence of sepsis. No significant electrolyte derangements. Discussed plan for outpatient follow-up including repeat laboratory analysis within 1 week to assess for change in T bili trend. Viral swab is obtained and pending. The patient elected to discharge prior to swab results. Return precautions discussed. Discharge Plan Departure Patient Disposition: Home Clinical Impression: Body aches Instructions: DI for Viral Syndrome Activity Restrictions/Additional Instructions: *You have been diagnosed with likely viral syndrome *What to do: *Please continue to take your regular medications as directed. *Please follow up with your primary care provider in 2-3 days, call for an appointment. Let them know you were seen in the Emergency Department and that we ask that you be seen in follow up. We will electronically transmit a record of today's note if your PCP is in our system *Return to Emergency Department if you should have any new, worsening or concerning symptoms, such as [fever greater than 101 F, shaking chills, worsening pain, persistent vomiting or other bothersome symptoms] Prescriptions: No Action hydrocodone-acetaminophen 5-325 mg tablet 1 tab PO Q4-6H PRN (Reason: pain) Qty: 10 0RF ondansetron 4 mg tablet,disintegrating 4 mg PO Q6H PRN (Reason: nausea and vomiting) Qty: 20 0RF Referrals: Saige Celeste MD [Primary Care Provider] - Stand Alone Forms: Patient Portal/API
[2022-09-14 13:09] VITALS: BP 128/78; PULSE 97; O2SAT 97
[2022-09-14 13:51] LABS: Influenza A - CEPHEID Flu A NEGATIVE (NEGATIVE); Influenza B - CEPHEID Flu B NEGATIVE (NEGATIVE); Respiratory Syncytial Virus Negative (Negative)
[2022-09-14 13:55] LABS: COVID-19 CEPHEID 4-PLEX PCR Negative (Negative)
== END 2022-09-14 13:15 | disposition home or self-care (01) ==
PROVIDERS: Emergency Medicine; Emergency Provider Emergency Medicine; PCP Student in an Organized Health Care Education/Training Program
DX: B34.9 Viral infection, unspecified (principal); M54.50 Low back pain, unspecified; Z20.822 Contact with and (suspected) exposure to COVID-19
CPT/HCPCS: 0241U; 36415; 80053; 83690; 85025; 99283

== ENCOUNTER 2023-01-13 06:36 | Emergency (ER) | payer OTHER, MEDICAID, SELFPAY ==
[2023-01-13 06:40] VITALS: BP 142/84; PULSE 80; RESP 17; TEMP 37.1; O2SAT 98; BMI 25.9
--- NOTE | 2023-01-13 07:31 | ED.BACK ---
HPI - Back Pain/Injury General Chief Complaint: Back Pain/Injury Stated Complaint: kidney stone Time Seen by Provider: 01/13/23 06:59 Source: patient Mode of arrival: Ambulatory Limitations: no limitations History of Present Illness HPI Narrative: Patient is a 47-year-old male who is here for evaluation what he states is a left-sided kidney stone. He states that his symptoms started this morning in the middle of the night. He did start to have some nausea last night with the pain was this morning. He is urinating without issue. He did vomit 1 time this morning. No diarrhea. He does have a history of diverticulitis but he states this feels different than that. He is had ?13 ?kidney stones in the past. He states this feels exactly like his prior stones. He is passed all of his stones on his own. No fevers. Has not tried anything for symptoms prior to arrival Related Data Previous Rx's Medication Instructions Recorded hydrocodone 5 mg-acetaminophen 325 1 tab PO Q4-6H PRN pain #10 tabs 12/11/19 mg tablet ondansetron 4 mg disintegrating 4 mg PO Q6H PRN nausea and 12/11/19 tablet vomiting #20 tabs hydrocodone 5 mg-acetaminophen 325 1 tab PO Q4-6H PRN pain #10 tabs 01/13/23 mg tablet ondansetron 4 mg disintegrating 4 mg PO Q6H PRN nausea and 01/13/23 tablet vomiting #14 tabs Allergies Allergy/AdvReac Type Severity Reaction Status Date / Time No Known Drug Allergies Allergy Verified 09/14/22 09:22 Review of Systems Constitutional Constitutional: Reports system reviewed and no additional complaints, except as documented Gastrointestinal Gastrointestinal: Reports system reviewed and no additional complaints, except as documented Genitourinary Genitourinary: Reports system reviewed and no additional complaints, except as documented Integumentary/Breasts Skin/Breast: Reports system reviewed and no additional complaints, except as documented Hematologic/Lymphatic On Anticoagulants: No Patient History Medical History Diverticulitis Surgical History History of abdominal surgery History of colon resection Social History Smoking Status: Former smoker Smoking Status: Former smoker tobacco type: smokeless tobacco alcohol intake frequency: a few times a month Substance Use Type: former substance user Exam Initial Vital Signs Initial Vital Signs: Vital Signs Temperature 98.8 F 01/13/23 06:40 Pulse Rate 80 01/13/23 06:40 Respiratory Rate 17 01/13/23 06:40 Blood Pressure 142/84 H 01/13/23 06:40 Pulse Oximetry 98 01/13/23 06:40 Oxygen Delivery Method Room Air 01/13/23 06:40 HENMT Head: normal to inspection and normocephalic Resp Effort & Inspection: normal respiratory effort Auscultation: clear to auscultation bilaterally Cardio Rate: regular rate Rhythm: regular rhythm GI Inspection: normal to inspection and non-distended Palpation: soft, No firm and No tender Back/Spine/Pelvis Back: No CVA tenderness Skin General: no rashes or lesions noted Neuro General: patient alert and patient awake Extrem General: normal to inspection and capillary refill normal Course Orders Ordered: ED Orders 01/13/23 06:58 Urine Microscopic Stat 01/13/23 07:15 Basic Metabolic Panel Stat Complete Blood Count AUTO DIFF Stat Discontinued Medications Ketorolac Tromethamine (Ketorolac 30 Mg/Ml Vial) 30 mg IV NOW ONE Stop: 01/13/23 07:32 Last Admin: 01/13/23 07:57 Dose: 30 mg Documented By: DAVID Ondansetron HCl (Ondansetron 4 Mg/2 Ml Inj) 4 mg IV NOW ONE Stop: 01/13/23 07:32 Last Admin: 01/13/23 07:58 Dose: 4 mg Documented By: DAVID Vital Signs Vital signs: Vital Signs - 8 hr 01/13/23 06:40 Temperature 98.8 F Pulse Rate 80 Respiratory Rate 17 Blood Pressure 142/84 H Pulse Oximetry 98 Oxygen Delivery Method Room Air MDM - Back Pain/Injury Lab Data Attestation: I reviewed the patient's lab results. 01/13/23 07:15 01/13/23 07:15 Labs: Lab Results 01/13/23 01/13/23 01/13/23 Range/Units 06:58 07:15 07:15 WBC 11.6 H (4.5-11.0) X10^3/uL RBC 5.45 (4.5-5.9) X10^6/uL Hgb 17.2 (13.5-17.5) g/dL Hct 49.5 (41-53) % MCV 90.7 (80-100) fL MCH 31.6 (26-34) PG MCHC 34.8 (30-36) % RDW 13.8 (11.6-14.8) % Plt Count 145 L (150-400) X10^3/uL Neut % (Auto) 85.0 H (50-75) % Lymph % (Auto) 7.6 L (25-40) % [place] % (Auto) 6.0 (3-14) % Eos % (Auto) 1.0 L (2-4) % Baso % (Auto) 0.4 (0-2) % Neut # (Auto) 9900 H (5938-4723) /uL Lymph # (Auto) 900 L (3878-2747) /uL [place] # (Auto) 700 (0-900) /uL Eos # (Auto) 100 (0-450) /uL Baso # (Auto) 0 (0-100) /uL Sodium 134 L (137-145) mmol/L Potassium 3.9 (3.4-5.1) mmol/L Chloride 103 (98-107) mmol/L Carbon Dioxide 22 (22-32) mmol/L BUN 19 (9-20) mg/dL Creatinine 0.87 (0.66-1.25) mg/dL Estimated GFR > 60 (>60) mL/min BUN/Creatinine Ratio 21.8 (6-22) Glucose 102 H (70-100) mg/dL Calcium 8.5 (8.4-10.2) mg/dL Urine RBC 5-10/hpf H (0-5/HPF) Urine WBC 0-1/hpf (0-5/HPF) Calcium Oxalate Crystal Few H Urine Bacteria None seen (None) Urine Mucus 1+ H (Negative) Ur Culture Indicated? Cult not indicated Urine Dip Bedside Urine Glucose Negative Bedside Urine Bilirubin - Negative Bedside Urine Ketone - Negative Urine Specific [place] 1.030 Bedside Urine pH 6.0 Bedside Urine Protein + 30 Bedside Urine Urobilinogen - Negative Bedside Urine Nitrite - Negative Bedside Urine Leukocytes - Negative Esterase MDM Narrative Medical decision making narrative: Patient arrives today with history of multiple stones that he is always passed on his own. He states he does have discomfort on his left side that is consistent with prior stones. He does not have urinary tract infection. His kidney function is unremarkable. He feels much better after the Toradol. We discussed the risks and benefits of obtaining a CT scan and after this discussion we decided not to move forward with the CT scan. He understands that we can not provide a definitive diagnosis because of this however given his history we are both fairly certain that this is he stone. He was told that if his symptoms worsen or he would develop new symptoms that he needs to return to the emergency department for further evaluation. Discharge Plan Departure Patient Disposition: Home Clinical Impression: Renal colic on left side Instructions: Kidney Stones -- Adult Activity Restrictions/Additional Instructions: I recommend that you use the pain medicine and nausea medication as needed. Contact your primary doctor for follow-up. Return to the emergency department for new or worsening symptoms like we discussed. Prescriptions: New ondansetron 4 mg tablet,disintegrating 4 mg PO Q6H PRN (Reason: nausea and vomiting) Qty: 14 0RF hydrocodone-acetaminophen 5-325 mg tablet 1 tab PO Q4-6H PRN (Reason: pain) Qty: 10 0RF No Action hydrocodone-acetaminophen 5-325 mg tablet 1 tab PO Q4-6H PRN (Reason: pain) Qty: 10 0RF ondansetron 4 mg tablet,disintegrating 4 mg PO Q6H PRN (Reason: nausea and vomiting) Qty: 20 0RF Referrals: Saige Celeste MD [Primary Care Provider] - Stand Alone Forms: Patient Portal/API
[2023-01-13 07:33] LABS: Add Manual Diff / Slide Review NO; Basophils Absolute Auto 0 /uL (0-100); Basophils Percent Auto 0.4 % (0-2); Eosinophils Absolute Auto 100 /uL (0-450); Hematocrit 49.5 % (41-53); Hemoglobin 17.2 g/dL (13.5-17.5); Lymphocytes Absolute Auto 900 /uL (1100-4500); Lymphocytes Percent Auto 7.6 % (25-40); Mean Corpuscular HGB Conc 34.8 % (30-36); Mean Corpuscular Hemoglobin 31.6 PG (26-34); Mean Corpuscular Volume 90.7 fL (80-100); Monocytes Absolute Auto 700 /uL (0-900); Neutrophils Absolute Auto 9900 /uL (1500-7000); Platelet Count 145 X10^3/uL (150-400); Red Blood Cell Count 5.45 X10^6/uL (4.5-5.9); Red Cell Distribution Width 13.8 % (11.6-14.8); White Blood Cell Count 11.6 X10^3/uL (4.5-11.0)
[2023-01-13 07:43] LABS: BUN Creatinine Ratio 21.8 (6-22); Blood Urea Nitrogen 19 mg/dL (9-20); Calcium 8.5 mg/dL (8.4-10.2); Carbon Dioxide 22 mmol/L (22-32); Chloride 103 mmol/L (98-107); Estimated Glomerular Filt Rate > 60 mL/min (>60); Glucose 102 mg/dL (70-100); HEMOLYSIS 31 (0-50); Potassium 3.9 mmol/L (3.4-5.1); Sodium 134 mmol/L (137-145)
[2023-01-13 07:47] LABS: Bacteria Urine None Seen; Calcium Oxalate Crystals Urine Few; Culture Indicated Urine Cult Not Indicated; Mucus Urine 1+ (Negative); RBC Urine 5-10/HPF (0-5/HPF); WBC Urine 0-1/HPF (0-5/HPF)
[2023-01-13] MEDS: KETOROLAC 30 MG/ML VIAL IV (07:57)
[2023-01-13] MEDS: ONDANSETRON 4 MG/2 ML INJ IV (07:58)
[2023-01-13 09:04] VITALS: BP 140/78; PULSE 77; RESP 18; O2SAT 98
== END 2023-01-13 09:06 | disposition home or self-care (01) ==
PROVIDERS: Emergency Provider Emergency Medicine; PCP Student in an Organized Health Care Education/Training Program
DX: N23 Unspecified renal colic (principal)
CPT/HCPCS: 80048; 81003; 81015; 85025; 96374; 96375; 99283; 99284; J1885; J2405

== ENCOUNTER 2023-01-14 21:36 | Emergency (ER) | payer OTHER, MEDICAID, SELFPAY ==
[2023-01-14 21:45] VITALS: BP 127/87; PULSE 80; RESP 18; TEMP 36.9; O2SAT 96; BMI 25.9
[2023-01-14 23:11] LABS: Bacteria Urine None Seen; RBC Urine 1-5/HPF (0-5/HPF); WBC Urine None Seen (0-5/HPF)
--- NOTE | 2023-01-14 23:53 | ED_ITS ---
HPI - Abdominal Pain General Chief Complaint: Abdominal Pain Stated Complaint: Thinks diverticulitis Time Seen by Provider: 01/14/23 21:54 Source: patient Mode of arrival: Family Vehicle History of Present Illness HPI narrative: 47-year-old male former smoker with history kidney stones and diverticulitis returns for the 2nd time in his many days in the chief complaint of worsening left-sided and now lower pain. He was seen and evaluated yesterday and symptoms were most consistent with kidney stone. Patient had RBCs in the blood with calcium oxalate crystals, he was sent home with pain medications and encouraged to return for worsening symptoms. He states that over the course of the day his pain settled more in the left lower quadrant is worse, barely controlled by his medications and reminds him of prior episodes of diverticulitis. Related Data Previous Rx's Medication Instructions Recorded hydrocodone 5 mg-acetaminophen 325 1 tab PO Q4-6H PRN pain #10 tabs 12/11/19 mg tablet ondansetron 4 mg disintegrating 4 mg PO Q6H PRN nausea and 12/11/19 tablet vomiting #20 tabs hydrocodone 5 mg-acetaminophen 325 1 tab PO Q4-6H PRN pain #10 tabs 01/13/23 mg tablet ondansetron 4 mg disintegrating 4 mg PO Q6H PRN nausea and 01/13/23 tablet vomiting #14 tabs amoxicillin 875 mg-potassium 1 tab PO Q12H #20 tabs 01/15/23 clavulanate 125 mg tablet hydrocodone 5 mg-acetaminophen 325 1 tab PO Q4-6H PRN pain #10 tabs 01/15/23 mg tablet Allergies Allergy/AdvReac Type Severity Reaction Status Date / Time No Known Drug Allergies Allergy Verified 09/14/22 09:22 Review of Systems Review of Systems Narrative: GENERAL: Denies chills, fatigue, malaise, fever, sweats. HEENT: Denies sinus pain, ear pain, sore throat, difficulty swallowing, dizziness. RESPIRATORY: Denies dyspnea, cough, wheezing, hemoptysis, sputum. CARDIOVASCULAR: Denies chest pain, palpitations, orthopnea, edema, GASTROINTESTINAL: See HPI : Denies dysuria, frequency, incontinence, hematuria, urinary retention. MUSCULOSKELETAL: denies weakness, joint pain, or bony pain SKIN: Denies rash, skin lesions, or other NEUROLOGIC: Denies weakness, headache, numbness, change in speech, confusion, seizures, incoordination. PSYCHIATRIC: No concerning psychosocial issues. 12 point review of systems is negative except for those stated above Patient History Medical History Diverticulitis Surgical History History of abdominal surgery History of colon resection Social History Smoking Status: Former smoker Smoking Status: Former smoker tobacco type: smokeless tobacco alcohol intake frequency: a few times a month Substance Use Type: former substance user Exam Narrative Exam Narrative: GENERAL: [47] year old patient appears stated age. Well-developed patient, in mild distress. HEAD: Atraumatic. Normocephalic. EYES: Pupils equal round and reactive. Extraocular motions intact. No scleral icterus. No injection or drainage. ENT: Nose without bleeding, purulent drainage. Throat without erythema, tonsillar hypertrophy or exudate. Airway patent. NECK: Trachea midline. Non tender CARDIOVASCULAR: Regular rate and rhythm without murmurs, gallops, or rubs. RESPIRATORY: Clear to auscultation. Breath sounds equal bilaterally. No wheezes, rales, or rhonchi. GASTROINTESTINAL: Abdomen soft, mild left lower quadrant tenderness, no rebound nondistended. Bowel sounds present in all 4 quadrants EXTREMITIES: No edema or joint tenderness. BACK: Nontender without deformity or crepitance. No flank tenderness. NEURO: AOx3. SKIN: No rash or erythema of visible areas Initial Vital Signs Initial Vital Signs: Vital Signs Temperature 98.4 F 01/14/23 21:45 Pulse Rate 80 01/14/23 21:45 Respiratory Rate 18 01/14/23 21:45 Blood Pressure 127/87 01/14/23 21:45 Pulse Oximetry 96 01/14/23 21:45 Oxygen Delivery Method Room Air 01/14/23 21:45 Course Orders Ordered: ED Orders 01/14/23 22:00 Urine Culture Stat Urine Microscopic Stat 01/14/23 23:56 Complete Blood Count AUTO DIFF Stat 01/14/23 23:57 CT abdomen pelvis w con Stat Comprehensive Metabolic Panel Stat Lactate (Lactic Acid) Stat Discontinued Medications Amoxicillin/Clavulanate Potassium (Amoxicillin/Clav 875/125 Mg) 1 tab PO NOW ONE Stop: 01/15/23 02:27 Last Admin: 01/15/23 02:32 Dose: 1 tab Documented By: GC Sodium Chloride (Normal Saline 0.9%) 1,000 mls @ 1,000 mls/hr IV BOLUS ONE Stop: 01/15/23 00:54 Last Infusion: 01/15/23 01:08 Dose: 0 mls/hr Documented By: Admin: 01/15/23 00:10 Dose: 1,000 mls/hr Documented By: HOLGER Vital Signs Vital signs: Vital Signs - 8 hr 01/15/23 02:46 Temperature 97.5 F L Pulse Rate 66 Respiratory Rate 16 Blood Pressure 132/65 Pulse Oximetry 97 Oxygen Delivery Method Room Air MDM - Abdominal Pain Lab Data 01/15/23 00:01 01/15/23 00:01 Labs: Lab Results 01/14/23 01/15/23 01/15/23 Range/Units 22:00 00:01 00:01 WBC 6.2 (4.5-11.0) X10^3/uL RBC 5.47 (4.5-5.9) X10^6/uL Hgb 17.2 (13.5-17.5) g/dL Hct 49.5 (41-53) % MCV 90.5 (80-100) fL MCH 31.5 (26-34) PG MCHC 34.8 (30-36) % RDW 13.6 (11.6-14.8) % Plt Count 137 L (150-400) X10^3/uL Neut % (Auto) 62.5 D (50-75) % Lymph % (Auto) 24.7 L (25-40) % [place] % (Auto) 9.4 (3-14) % Eos % (Auto) 1.8 L (2-4) % Baso % (Auto) 1.6 (0-2) % Neut # (Auto) 3900 (2814-8773) /uL Lymph # (Auto) 1500 (8430-8379) /uL Irwin # (Auto) 600 (0-900) /uL Eos # (Auto) 100 (0-450) /uL Baso # (Auto) 100 (0-100) /uL Sodium 137 (137-145) mmol/L Potassium 4.3 (3.4-5.1) mmol/L Chloride 101 (98-107) mmol/L Carbon Dioxide 29 (22-32) mmol/L BUN 18 (9-20) mg/dL Creatinine 1.05 (0.66-1.25) mg/dL Estimated GFR > 60 (>60) mL/min BUN/Creatinine Ratio 17.1 (6-22) Glucose 84 (70-100) mg/dL Lactate (0.7-2.1) mmol/L Calcium 8.8 (8.4-10.2) mg/dL Total Bilirubin 1.3 (0.2-1.3) mg/dL AST 46 (17-59) IU/L ALT 52 H (<50) IU/L Alkaline Phosphatase 107 (38-126) U/L Total Protein 6.9 (6.3-8.2) g/dL Albumin 4.2 (3.5-5.0) g/dL Globulin 2.7 (1.7-4.1) g/dL Albumin/Globulin Ratio 1.6 (1.0-2.8) Urine RBC 1-5/hpf (0-5/HPF) Urine WBC None seen (0-5/HPF) Urine Bacteria None seen (None) Micro UA Comment * 01/15/23 Range/Units 00:01 WBC (4.5-11.0) X10^3/uL RBC (4.5-5.9) X10^6/uL Hgb (13.5-17.5) g/dL Hct (41-53) % MCV (80-100) fL MCH (26-34) PG MCHC (30-36) % RDW (11.6-14.8) % Plt Count (150-400) X10^3/uL Neut % (Auto) (50-75) % Lymph % (Auto) (25-40) % Irwin % (Auto) (3-14) % Eos % (Auto) (2-4) % Baso % (Auto) (0-2) % Neut # (Auto) (3162-3932) /uL Lymph # (Auto) (8344-3632) /uL Irwin # (Auto) (0-900) /uL Eos # (Auto) (0-450) /uL Baso # (Auto) (0-100) /uL Sodium (137-145) mmol/L Potassium (3.4-5.1) mmol/L Chloride (98-107) mmol/L Carbon Dioxide (22-32) mmol/L BUN (9-20) mg/dL Creatinine (0.66-1.25) mg/dL Estimated GFR (>60) mL/min BUN/Creatinine Ratio (6-22) Glucose (70-100) mg/dL Lactate 0.6 L (0.7-2.1) mmol/L Calcium (8.4-10.2) mg/dL Total Bilirubin (0.2-1.3) mg/dL AST (17-59) IU/L ALT (<50) IU/L Alkaline Phosphatase (38-126) U/L Total Protein (6.3-8.2) g/dL Albumin (3.5-5.0) g/dL Globulin (1.7-4.1) g/dL Albumin/Globulin Ratio (1.0-2.8) Urine RBC (0-5/HPF) Urine WBC (0-5/HPF) Urine Bacteria (None) Micro UA Comment Point of care testing: Urine Dip Bedside Urine Glucose Negative Bedside Urine Bilirubin - Negative Bedside Urine Ketone +/- 5 Urine Specific [place] 1.025 Bedside Urine Occult Blood + Bedside Urine pH 6.0 Bedside Urine Protein - Negative Bedside Urine Urobilinogen - Negative Bedside Urine Nitrite - Negative Bedside Urine Leukocytes - Negative Esterase MDM Narrative Medical decision making narrative: CC: 47M with LLQ pain Complicating co-morbidities: hx of kidney stones/diverticulitis Data collected from: Patient Medical records reviewed: Prior notes reviewed in our EMR Differential considered, but not limited to: stones vs. diverticulitis vs. other Exam documented above, pertinent findings include: LLQ pain, no rebound Lab Test results independently reviewed as above. Pertinent findings: Independently reviewed EKG as above Imaging studies independently reviewed: CT Abd/Pelvis w/contrast notes mild diverticulitis without perforation or abscess Treatments: Saline, Augmentin Re-evaluations: Pain well controlled Discussion: Patient with left lower quadrant pain reminiscent of prior episodes of diverticulitis. Patient shows no signs of sepsis. History and physical exam as well as labs and imaging are reassuring. There is no evidence of perf oration or abscess. Pain is well controlled, patient is tolerating orals and appropriate for discharge. Disposition: see below, along with detailed discharge instructions that have been reviewed with patient as well as indications for ED re-evaluation and additional outpatient follow up Discharge Plan Departure Patient Disposition: Home Clinical Impression: Diverticulitis Instructions: DI for Diverticulitis Activity Restrictions/Additional Instructions: *You have been diagnosed with [abdominal pain due to mild diverticulitis * As we discussed your history and physical exam as well as labs and imaging are very reassuring. Your history, exam, labs, and CT are reassuring and demonstrate no sign of abscess or perforation *What to do: *Please continue to take your regular medications as directed. [x ] New medication prescriptions sent to your pharmacy: [[facility] in [place] ] *Please follow up with your primary care provider in 2-3 days, call for an appo intment. Let them know you were seen in the Emergency Department and that we ask that you be seen in follow up. We will electronically transmit a record of today's note if your PCP is in our system *Please consider a clear liquid diet for the next 24-48 hours and then slowly advance to regular as tolerated. Also, try to avoid alcohol, nicotine, caffeine, spicy, acidic or fatty foods as this may worsen your symptoms *If you do not have a primary care provider please contact the [facility] Resource line at [phone]. They will ask some questions about your medical history and help get you set up with a doctor in the community. *Return to Emergency Department if you should have any new, worsening or concerning symptoms, such as [fever greater than 101 F, shaking chills, worsening pain, persistent vomiting or other bothersome symptoms] Prescriptions: New hydrocodone-acetaminophen 5-325 mg tablet 1 tab PO Q4-6H PRN (Reason: pain) Qty: 10 0RF amoxicillin-pot clavulanate 875-125 mg tablet 1 tab PO Q12H Qty: 20 0RF No Action hydrocodone-acetaminophen 5-325 mg tablet 1 tab PO Q4-6H PRN (Reason: pain) Qty: 10 0RF ondansetron 4 mg tablet,disintegrating 4 mg PO Q6H PRN (Reason: nausea and vomiting) Qty: 20 0RF ondansetron 4 mg tablet,disintegrating 4 mg PO Q6H PRN (Reason: nausea and vomiting) Qty: 14 0RF hydrocodone-acetaminophen 5-325 mg tablet 1 tab PO Q4-6H PRN (Reason: pain) Qty: 10 0RF Referrals: Saige Celeste MD [Primary Care Provider] - Stand Alone Forms: Patient Portal/API
--- NOTE | 2023-01-14 23:57 | DI.CT.S_ITS ---
PROCEDURE: CT ABDOMEN PELVIS W CON INDICATIONS: severe LLQ pain, worsening, hx divertic/stones TECHNIQUE: After the administration of IV contrast, axial sections were acquired from the lung bases to the pubic symphysis. Coronal and sagittal reformats were performed. For radiation dose reduction, the following was used: automated exposure control, adjustment of mA and/or kV according to patient size. COMPARISON: None. Previous studies from 05/28/2022 and 12/11/2019 unable to be retrieved at time of dictation. FINDINGS: Image quality: Excellent. Lung bases: Unremarkable. Heart: Heart is normal in size. ABDOMEN: Liver: There is diffuse hypoattenuation of the liver consistent with fatty infiltration. Gallbladder: Within normal limits without calcified gallstones. Biliary ducts: No biliary ductal dilatation. Pancreas: Unremarkable. Spleen: Normal in size. Adrenal Glands: No adrenal nodules. Kidneys and Ureters: No hydronephrosis. Stomach and Bowel: Stomach and small bowel loops are normal in caliber and wall thickness. The appendix is normal. There is colonic diverticulosis with an associated focal short segment of colonic wall thickening and mild pericolonic fat stranding in the mid descending colon suggestive of a mild focal colitis or diverticulitis. There are surgical sutures within the sigmoid colon. Peritoneum: No abnormal intraperitoneal fluid. No abscess collection. No free air. Ventral Wall: No hernia. Abdominal Nodes: No retroperitoneal or mesenteric adenopathy by size criteria. Vessels: Aorta and inferior vena cava are normal in size. PELVIS: Pelvic Organs: Unremarkable. Bladder: Unremarkable. Pelvic Nodes: No enlarged lymph nodes. Miscellaneous: No inguinal hernias are seen. Bones: Visualized osseous structures demonstrate no suspicious focal lesions. IMPRESSION: 1. Colonic diverticulosis with a focal short segment of mild colonic wall thickening and mild pericolonic fat stranding in the descending colon suggestive a mild colitis or diverticulitis. No macroscopic free air or diverticular abscess. Dictated by: Eleazar Keller M.D. on 01/15/2023 at 1:34 Approved by: Eleazar Keller M.D. on 01/15/2023 at 1:41
[2023-01-15] MEDS: SODIUM CHLORIDE 0.9% 1,000 ML 1000 ML IV (00:10)
[2023-01-15 00:15] LABS: Add Manual Diff / Slide Review NO; Basophils Absolute Auto 100 /uL (0-100); Basophils Percent Auto 1.6 % (0-2); Eosinophils Absolute Auto 100 /uL (0-450); Eosinophils Percent Auto 1.8 % (2-4); Hematocrit 49.5 % (41-53); Hemoglobin 17.2 g/dL (13.5-17.5); Lymphocytes Absolute Auto 1500 /uL (1100-4500); Lymphocytes Percent Auto 24.7 % (25-40); Mean Corpuscular HGB Conc 34.8 % (30-36); Mean Corpuscular Hemoglobin 31.5 PG (26-34); Mean Corpuscular Volume 90.5 fL (80-100); Monocytes Absolute Auto 600 /uL (0-900); Monocytes Percent Auto 9.4 % (3-14); Neutrophils Absolute Auto 3900 /uL (1500-7000); Neutrophils Percent Auto 62.5 % (50-75); Platelet Count 137 X10^3/uL (150-400); Red Blood Cell Count 5.47 X10^6/uL (4.5-5.9); Red Cell Distribution Width 13.6 % (11.6-14.8); White Blood Cell Count 6.2 X10^3/uL (4.5-11.0)
[2023-01-15 00:24] LABS: Lactate (Lactic Acid) 0.6 mmol/L (0.7-2.1)
[2023-01-15 00:25] LABS: Alanine Aminotransferase 52 IU/L (<50); Albumin 4.2 g/dL (3.5-5.0); Albumin Globulin Ratio 1.6 (1.0-2.8); Alkaline Phosphatase 107 U/L (38-126); Aspartate Aminotransferase 46 IU/L (17-59); BUN Creatinine Ratio 17.1 (6-22); Bilirubin Total 1.3 mg/dL (0.2-1.3); Blood Urea Nitrogen 18 mg/dL (9-20); Calcium 8.8 mg/dL (8.4-10.2); Carbon Dioxide 29 mmol/L (22-32); Chloride 101 mmol/L (98-107); Estimated Glomerular Filt Rate > 60 mL/min (>60); Globulin 2.7 g/dL (1.7-4.1); Glucose 84 mg/dL (70-100); HEMOLYSIS 16 (0-50); Potassium 4.3 mmol/L (3.4-5.1); Sodium 137 mmol/L (137-145); Total Protein 6.9 g/dL (6.3-8.2)
[2023-01-15] MEDS: AMOXICILLIN/CLAV 875/125 MG 1 TAB PO (02:32)
[2023-01-15 02:46] VITALS: BP 132/65; PULSE 66; RESP 16; TEMP 36.4; O2SAT 97
== END 2023-01-15 02:48 | disposition home or self-care (01) ==
PROVIDERS: Emergency Provider Emergency Medicine; PCP Student in an Organized Health Care Education/Training Program
DX: K57.92 Diverticulitis of intestine, part unspecified, without perforation or abscess without bleeding (principal)
CPT/HCPCS: 36415; 74177; 80053; 81003; 81015; 83605; 85025; 87086; 99284; Q9967

== ENCOUNTER 2023-05-13 11:06 | Emergency (ER) | payer SELFPAY ==
--- NOTE | 2023-05-13 11:11 | DI.CT.S_ITS ---
PROCEDURE: CT ABDOMEN PELVIS W CON INDICATIONS: diverticulitis? TECHNIQUE: After the administration of intravenous contrast, axial sections acquired from the lung bases to the pubic symphysis. Coronal and sagittal reformats were performed. For radiation dose reduction, the following was used: automated exposure control, adjustment of mA and/or kV according to patient size. COMPARISON: [facility], CT, CT ABDOMEN PELVIS W CON, 01/15/2023, 1:06. [facility], CT, CT ABDOMEN PELVIS W CON, 05/28/2022, 10:30. FINDINGS: Image quality: Excellent. Lung bases: Unremarkable. Heart: No significant findings. ABDOMEN: Liver: Liver is mildly hypoattenuating. Gallbladder: Unremarkable. Biliary ducts: Unremarkable. Pancreas: Unremarkable. Spleen: Unremarkable. Adrenal Glands: Unremarkable. Kidneys and Ureters: Unremarkable. Stomach and Bowel: Multiple diverticula are seen in the colon. There is bowel wall thickening and fat stranding surrounding a diverticulum in the proximal portion of the descending colon, consistent with acute diverticulitis. No focal fluid collection or pneumoperitoneum is seen. Postsurgical changes seen at the rectosigmoid junction. Small bowel loops and stomach are unremarkable. Normal appendix. Peritoneum: No abnormal intraperitoneal fluid. No free air. Ventral Wall: No hernias. Abdominal Nodes: No retroperitoneal or mesenteric adenopathy by size criteria. Vessels: Aorta and inferior vena cava are normal in size. PELVIS: Pelvic Organs: Unremarkable. Bladder: Unremarkable. Pelvic Nodes: No enlarged lymph nodes. Miscellaneous: No hernias are seen. Bones: Unremarkable. IMPRESSION: Acute uncomplicated descending colonic diverticulitis, in a similar location when compared to the CTs from 01/15/2023 and 05/28/2022. Approved by: Kobe Pablo M.D. on 05/13/2023 at 12:47
--- NOTE | 2023-05-13 11:16 | ED.ABDPAIN ---
HPI - Abdominal Pain <RADHA Giraldo - Last Filed: 05/13/23 12:59> General Chief Complaint: Abdominal Pain Stated Complaint: thinks Diverticulitis Time Seen by Provider: 05/13/23 11:11 History of Present Illness HPI narrative: This is a 48-year-old male who presents to the emergency department with abdominal pain, nausea without vomiting, and tenderness which has migrated to the left lower quadrant over the last 2 days. States this is the 3rd time he is developed these symptoms over the last year. Has history of bowel resection, diverticulitis, and denies any GI bleeding in the past. 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 Denies history of malignancy, states that it started in the periumbilical region and was bothersome in the last 2 days and migrated to the left lower quadrant now has tenderness there if he pushes on this part of his abdomen. Denies any urinary changes, states he had a bowel movement this morning, denies any blood in his urine or stool. Denies fever, chills, vomiting, weakness, low back pain, or other symptom. Related Data Previous Rx's Medication Instructions Recorded hydrocodone 5 mg-acetaminophen 325 1 tab PO Q4-6H PRN pain #10 tabs 12/11/19 mg tablet ondansetron 4 mg disintegrating 4 mg PO Q6H PRN nausea and 12/11/19 tablet vomiting #20 tabs hydrocodone 5 mg-acetaminophen 325 1 tab PO Q4-6H PRN pain #10 tabs 01/13/23 mg tablet ondansetron 4 mg disintegrating 4 mg PO Q6H PRN nausea and 01/13/23 tablet vomiting #14 tabs amoxicillin 875 mg-potassium 1 tab PO Q12H #20 tabs 01/15/23 clavulanate 125 mg tablet hydrocodone 5 mg-acetaminophen 325 1 tab PO Q4-6H PRN pain #10 tabs 01/15/23 mg tablet amoxicillin 875 mg-potassium 1 tab PO BID 10 days #20 tabs 05/13/23 clavulanate 125 mg tablet Allergies Allergy/AdvReac Type Severity Reaction Status Date / Time No Known Drug Allergies Allergy Verified 05/13/23 11:17 Review of Systems <RADHA Giraldo - Last Filed: 05/13/23 12:59> Review of Systems ROS Unobtainable: All systems reviewed & are unremarkable except as noted in HPI and below Patient History <RADHA Giraldo - Last Filed: 05/13/23 12:59> Medical History Diverticulitis Surgical History History of abdominal surgery History of colon resection Social History Smoking Status: Former smoker Smoking Status: Former smoker tobacco type: smokeless tobacco alcohol intake frequency: a few times a month Substance Use Type: former substance user Exam <RADHA Giraldo - Last Filed: 05/13/23 12:59> Narrative Exam Narrative: Reviewed vitals signs and nursing notes. General: Pleasant, sitting upright, in no acute distress, well groomed, afebrile HEENT: symmetrical facial expressions, moist mucous membranes, neck is supple CV: regular rate and rhythm, warm extremities Respiratory: normal work of breathing, without tachypnea or hypoxia. GI: abdomen soft, nondistended, without CVA tenderness bilaterally. Left lower quadrant tenderness to palpation, no rebound tenderness, nontender over McBurney's point, negative Matta sign MSK: moves all extremities, no weakness, normal tone, ambulatory without deficit Skin: brisk capillary refill, without rash or wound Neuro: clear speech and normal cognition, A&O x3, GCS 15, no focal motor or sensation deficits Initial Vital Signs Initial Vital Signs: Vital Signs Temperature 97.8 F 05/13/23 11:17 Pulse Rate 89 05/13/23 11:17 Respiratory Rate 15 05/13/23 11:17 Blood Pressure 128/93 H 05/13/23 11:17 Pulse Oximetry 98 05/13/23 11:17 Oxygen Delivery Method Room Air 05/13/23 11:17 <Oz Can DO - Last Filed: 05/14/23 07:11> Initial Vital Signs Initial Vital Signs: Vital Signs Temperature 97.8 F 05/13/23 11:17 Pulse Rate 89 05/13/23 11:17 Respiratory Rate 15 05/13/23 11:17 Blood Pressure 128/93 H 05/13/23 11:17 Pulse Oximetry 98 05/13/23 11:17 Oxygen Delivery Method Room Air 05/13/23 11:17 Course <RADHA Giraldo - Last Filed: 05/13/23 12:59> Orders Ordered: Discontinued Medications Amoxicillin/Clavulanate Potassium (Amoxicillin/Clav 875/125 Mg) 1 tab PO NOW ONE Stop: 05/13/23 12:55 Last Admin: 05/13/23 13:01 Dose: 1 tab Documented By: ALEXANDRE Ketorolac Tromethamine (Ketorolac 30 Mg/Ml Vial) 15 mg IV NOW ONE Stop: 05/13/23 11:30 Last Admin: 05/13/23 12:26 Dose: 15 mg Documented By: HAILY Ondansetron HCl (Ondansetron 4 Mg/2 Ml Inj) 4 mg IV NOW ONE Stop: 05/13/23 11:19 Last Admin: 05/13/23 12:27 Dose: 4 mg Documented By: HAILY Vital Signs Vital signs: Vital Signs - 8 hr 05/13/23 11:17 Temperature 97.8 F Pulse Rate 89 Respiratory Rate 15 Blood Pressure 128/93 H Pulse Oximetry 98 Oxygen Delivery Method Room Air <Oz Can DO - Last Filed: 05/14/23 07:11> Orders Ordered: Discontinued Medications Amoxicillin/Clavulanate Potassium (Amoxicillin/Clav 875/125 Mg) 1 tab PO NOW ONE Stop: 05/13/23 12:55 Last Admin: 05/13/23 13:01 Dose: 1 tab Documented By: ALEXANDRE Ketorolac Tromethamine (Ketorolac 30 Mg/Ml Vial) 15 mg IV NOW ONE Stop: 05/13/23 11:30 Last Admin: 05/13/23 12:26 Dose: 15 mg Documented By: HAILY Ondansetron HCl (Ondansetron 4 Mg/2 Ml Inj) 4 mg IV NOW ONE Stop: 05/13/23 11:19 Last Admin: 05/13/23 12:27 Dose: 4 mg Documented By: SPF Vital Signs Vital signs: Vital Signs - 8 hr 05/13/23 11:17 Temperature 97.8 F Pulse Rate 89 Respiratory Rate 15 Blood Pressure 128/93 H Pulse Oximetry 98 Oxygen Delivery Method Room Air MDM - Abdominal Pain <RADHA Giraldo - Last Filed: 05/13/23 12:59> Lab Data 05/13/23 12:32 05/13/23 12:32 Labs: Lab Results 05/13/23 05/13/23 Range/Units 12:32 12:32 WBC 12.3 H (4.5-11.0) X10^3/uL RBC 5.17 (4.5-5.9) X10^6/uL Hgb 16.1 (13.5-17.5) g/dL Hct 46.7 (41-53) % MCV 90.3 (80-100) fL MCH 31.1 (26-34) PG MCHC 34.4 (30-36) % RDW 12.9 (11.6-14.8) % Plt Count 154 (150-400) X10^3/uL Neut % (Auto) 78.2 H (50-75) % Lymph % (Auto) 12.6 L (25-40) % [place] % (Auto) 7.6 (3-14) % Eos % (Auto) 1.2 L (2-4) % Baso % (Auto) 0.4 (0-2) % Neut # (Auto) 9600 H (6129-2570) /uL Lymph # (Auto) 1500 (3583-8623) /uL [place] # (Auto) 900 (0-900) /uL Eos # (Auto) 100 (0-450) /uL Baso # (Auto) 0 (0-100) /uL Sodium 133 L (137-145) mmol/L Potassium 3.8 (3.4-5.1) mmol/L Chloride 102 (98-107) mmol/L Carbon Dioxide 24 (22-32) mmol/L BUN 17 (9-20) mg/dL Creatinine 0.79 (0.66-1.25) mg/dL Estimated GFR > 60 (>60) mL/min BUN/Creatinine Ratio 21.5 (6-22) Glucose 106 H (70-100) mg/dL Calcium 8.8 (8.4-10.2) mg/dL Total Bilirubin 1.0 (0.2-1.3) mg/dL AST 36 (17-59) IU/L ALT 40 (<50) IU/L Alkaline Phosphatase 111 (38-126) U/L Total Protein 6.9 (6.3-8.2) g/dL Albumin 4.1 (3.5-5.0) g/dL Globulin 2.8 (1.7-4.1) g/dL Albumin/Globulin Ratio 1.5 (1.0-2.8) Lipase 59 (23-300) U/L Imaging Data CT scan - abdomen/pelvis: Radiologist's Impression: [address] [address] [address] Scan Report Signed Patient: Eleazar Maria MR#: [id number] : 1975 Acct:[id number] Age/Sex: 48 / M Date of Service: 05/13/23 Loc: ED Accession Number: [id number] ?? Procedure: CT abdomen pelvis w con Ordering Provider: Marilee Bloom PROCEDURE:? CT ABDOMEN PELVIS W CON ? INDICATIONS:? diverticulitis? ? TECHNIQUE:? After the administration of intravenous contrast, axial sections acquired from the lung bases to the pubic symphysis.? Coronal and sagittal reformats were performed.? For radiation dose reduction, the following was used:? automated exposure control, adjustment of mA and/or kV according to patient size.? ? COMPARISON:? [facility], CT, CT ABDOMEN PELVIS W CON, 01/15/2023, 1:06.? [facility], CT, CT ABDOMEN PELVIS W CON, 05/28/2022, 10:30. ? FINDINGS:? Image quality:? Excellent.? ? Lung bases:? Unremarkable. Heart:? No significant findings. ? ABDOMEN: Liver:? Liver is mildly hypoattenuating.? ? Gallbladder:? Unremarkable. Biliary ducts:? Unremarkable.? ? Pancreas:? Unremarkable.? ? Spleen:? Unremarkable.? ? Adrenal Glands:? Unremarkable.? ? Kidneys and Ureters:? Unremarkable.? ? ? Stomach and Bowel:? Multiple diverticula are seen in the colon.? There is bowel wall thickening and fat stranding surrounding a diverticulum in the proximal portion of the descending colon, consistent with acute diverticulitis.? No focal fluid collection or pneumoperitoneum is seen.? Postsurgical changes seen at the rectosigmoid junction.? Small bowel loops and stomach are unremarkable.? Normal appendix. Peritoneum:? No abnormal intraperitoneal fluid.? No free air.? ? Ventral Wall: ? No hernias.? Abdominal Nodes:? No retroperitoneal or mesenteric adenopathy by size criteria.? Vessels:? Aorta and inferior vena cava are normal in size.? ? PELVIS: Pelvic Organs:? Unremarkable.? ? Bladder:? Unremarkable.? ? Pelvic Nodes: No enlarged lymph nodes.? Miscellaneous: No hernias are seen. ? ? ? Bones:? Unremarkable.? IMPRESSION:? Acute uncomplicated descending colonic diverticulitis, in a similar location when compared to the CTs from 01/15/2023 and 05/28/2022. ? ? ? Approved by: Kobe Pablo M.D. on 05/13/2023 at 12:47? MDM Narrative Medical decision making narrative: Chief complaint: abdominal pain Multiple etiologies for patient's symptoms considered including, but not limited to: perforated viscus, appendicitis, nephrolithiasis, urinary retention, prostatitis, colitis, diverticulitis, pancreatitis, obstructive uropathy, urinary tract infection, fecal impaction, volvulus, bowel stricture, mesenteric adenitis, intussusception, malignancy, muscle strain Prior Charts reviewed: History of diverticulitis, bowel resection, 3rd time with diverticulitis this year Labs reviewed and interpreted by myself: Patient's lab work is significant for leukocytosis of 12.3 with a left shift, without anemia, chemistries unremarkable, lipase is 59. Imaging reviewed: CT abdomen pelvis is positive for acute uncomplicated descending colonic diverticulitis similar to previous episodes in the same location when compared to CTs from 01/15/2023 and 05/28/2022 normal appendix, no free air Consultations: Patient contact information for [facility] to set up a colonoscopy when he is well. Patient was treated with Augmentin b.i.d. times 10 days and encouraged she is MiraLax, start a clear liquid diet, and follow-up. Patient's symptoms improved over duration of stay with above-stated therapies. Findings and discharge diagnosis discussed with patient/family followed by verbalization of understanding Return precautions discussed with patient/family whom verbalize understanding of diagnosis and plan <Oz Can DO - Last Filed: 05/14/23 07:11> Lab Data Labs: Lab Results 05/13/23 05/13/23 Range/Units 12:32 12:32 WBC 12.3 H (4.5-11.0) X10^3/uL RBC 5.17 (4.5-5.9) X10^6/uL Hgb 16.1 (13.5-17.5) g/dL Hct 46.7 (41-53) % MCV 90.3 (80-100) fL MCH 31.1 (26-34) PG MCHC 34.4 (30-36) % RDW 12.9 (11.6-14.8) % Plt Count 154 (150-400) X10^3/uL Neut % (Auto) 78.2 H (50-75) % Lymph % (Auto) 12.6 L (25-40) % [place] % (Auto) 7.6 (3-14) % Eos % (Auto) 1.2 L (2-4) % Baso % (Auto) 0.4 (0-2) % Neut # (Auto) 9600 H (0252-1415) /uL Lymph # (Auto) 1500 (7066-8528) /uL [place] # (Auto) 900 (0-900) /uL Eos # (Auto) 100 (0-450) /uL Baso # (Auto) 0 (0-100) /uL Sodium 133 L (137-145) mmol/L Potassium 3.8 (3.4-5.1) mmol/L Chloride 102 (98-107) mmol/L Carbon Dioxide 24 (22-32) mmol/L BUN 17 (9-20) mg/dL Creatinine 0.79 (0.66-1.25) mg/dL Estimated GFR > 60 (>60) mL/min BUN/Creatinine Ratio 21.5 (6-22) Glucose 106 H (70-100) mg/dL Calcium 8.8 (8.4-10.2) mg/dL Total Bilirubin 1.0 (0.2-1.3) mg/dL AST 36 (17-59) IU/L ALT 40 (<50) IU/L Alkaline Phosphatase 111 (38-126) U/L Total Protein 6.9 (6.3-8.2) g/dL Albumin 4.1 (3.5-5.0) g/dL Globulin 2.8 (1.7-4.1) g/dL Albumin/Globulin Ratio 1.5 (1.0-2.8) Lipase 59 (23-300) U/L Discharge Plan Departure Patient Disposition: Home Clinical Impression: Diverticulitis Instructions: Diverticulitis Activity Restrictions/Additional Instructions: *You have been diagnosed with acute uncomplicated diverticulitis in a similar region to where you previously had diverticulitis without much of a difference on this today scan compared to priors. I am sorry for the weight, you do have a small bump to your white blood cell count on your lab work as well. Please take these antibiotics for the next 10 days. Focus on clear fluids mostly for the next day or 2 and advanced your diet as tolerated. Try to avoid any heavy foods, use MiraLax as necessary to bring moisture in and help the stool be easier to pass. Okay to use Aleve or ibuprofen and Tylenol as needed for pain. Please come back in if you develop worsening pain if your symptoms do not start improving, or if you have another complication. I hope you feel better soon. For the future, you may mention that you have not had any severe pain or pain different than previous episodes of this if you want it to avoid a CT scan at first. Since you have recurrence of this and similar ways, it is most likely going to recur in a similar fashion and if you catch it early enough you might not need that CT scan. Please schedule follow-up with [facility] for colonoscopy when you are well. *What to do: *Please continue to take your regular medications as directed. [ x] New medication prescriptions sent to your pharmacy: [[facility]] [ ] New medication written as a paper prescription [ ] No new medications given *Please call and schedule follow up with your primary care provider in 2-3 days, at least for an update. Let them know you were seen in the Emergency Department for the above problem. We will electronically transmit a record of today's note if your PCP or specialist is in our system. *If you do not have a primary care provider please contact [phone] to establish care with one of the [facility] primary care providers. *Return to the Emergency Department for worsening symptoms, inability to keep liquids down, fever greater than 101F, chills, or other concerning symptom. Prescriptions: New amoxicillin-pot clavulanate 875-125 mg tablet 1 tab PO BID 10 Days Qty: 20 0RF No Action hydrocodone-acetaminophen 5-325 mg tablet 1 tab PO Q4-6H PRN (Reason: pain) Qty: 10 0RF amoxicillin-pot clavulanate 875-125 mg tablet 1 tab PO Q12H Qty: 20 0RF hydrocodone-acetaminophen 5-325 mg tablet 1 tab PO Q4-6H PRN (Reason: pain) Qty: 10 0RF ondansetron 4 mg tablet,disintegrating 4 mg PO Q6H PRN (Reason: nausea and vomiting) Qty: 20 0RF ondansetron 4 mg tablet,disintegrating 4 mg PO Q6H PRN (Reason: nausea and vomiting) Qty: 14 0RF hydrocodone-acetaminophen 5-325 mg tablet 1 tab PO Q4-6H PRN (Reason: pain) Qty: 10 0RF Referrals: [facility] [Provider Group] Saige Celeste MD [Primary Care Provider] - Stand Alone Forms: Patient Portal/API <Oz Can DO - Last Filed: 05/14/23 07:11> Cosign ED Attending Nestor Attestation: I was immediately available in the department for consultation. Documentation has been reviewed. I agree with assessment and plan.
[2023-05-13 11:17] VITALS: BP 128/93; PULSE 89; RESP 15; TEMP 36.6; O2SAT 98; BMI 269.8
[2023-05-13] MEDS: KETOROLAC 30 MG/ML VIAL 15 MG IV (12:26)
[2023-05-13] MEDS: ONDANSETRON 4 MG/2 ML INJ IV (12:27)
[2023-05-13 12:44] LABS: Add Manual Diff / Slide Review NO; Basophils Absolute Auto 0 /uL (0-100); Basophils Percent Auto 0.4 % (0-2); Eosinophils Absolute Auto 100 /uL (0-450); Eosinophils Percent Auto 1.2 % (2-4); Hematocrit 46.7 % (41-53); Hemoglobin 16.1 g/dL (13.5-17.5); Lymphocytes Absolute Auto 1500 /uL (1100-4500); Lymphocytes Percent Auto 12.6 % (25-40); Mean Corpuscular HGB Conc 34.4 % (30-36); Mean Corpuscular Hemoglobin 31.1 PG (26-34); Mean Corpuscular Volume 90.3 fL (80-100); Monocytes Absolute Auto 900 /uL (0-900); Monocytes Percent Auto 7.6 % (3-14); Neutrophils Absolute Auto 9600 /uL (1500-7000); Neutrophils Percent Auto 78.2 % (50-75); Platelet Count 154 X10^3/uL (150-400); Red Blood Cell Count 5.17 X10^6/uL (4.5-5.9); Red Cell Distribution Width 12.9 % (11.6-14.8); White Blood Cell Count 12.3 X10^3/uL (4.5-11.0)
[2023-05-13 12:52] LABS: Alanine Aminotransferase 40 IU/L (<50); Albumin 4.1 g/dL (3.5-5.0); Albumin Globulin Ratio 1.5 (1.0-2.8); Alkaline Phosphatase 111 U/L (38-126); Aspartate Aminotransferase 36 IU/L (17-59); BUN Creatinine Ratio 21.5 (6-22); Blood Urea Nitrogen 17 mg/dL (9-20); Calcium 8.8 mg/dL (8.4-10.2); Carbon Dioxide 24 mmol/L (22-32); Chloride 102 mmol/L (98-107); Estimated Glomerular Filt Rate > 60 mL/min (>60); Globulin 2.8 g/dL (1.7-4.1); Glucose 106 mg/dL (70-100); HEMOLYSIS 52 (0-50); Lipase 59 U/L (23-300); Potassium 3.8 mmol/L (3.4-5.1); Sodium 133 mmol/L (137-145); Total Protein 6.9 g/dL (6.3-8.2)
[2023-05-13] MEDS: AMOXICILLIN/CLAV 875/125 MG 1 TAB PO (13:01)
[2023-05-13 13:11] VITALS: BP 125/88; PULSE 76; O2SAT 96
== END 2023-05-13 13:15 | disposition home or self-care (01) ==
PROVIDERS: Emergency Provider Nurse Practitioner Critical Care Medicine; PCP Student in an Organized Health Care Education/Training Program
DX: K57.92 Diverticulitis of intestine, part unspecified, without perforation or abscess without bleeding (principal)
CPT/HCPCS: 36415; 74177; 80053; 83690; 85025; 96374; 96375; 99284; J1885; J2405; Q9967